=== PATIENT | female | born 1970 | race Caucasian/White ===

== ENCOUNTER 2017-07-16 13:20 | Inpatient (IN) | payer MEDICARE ==
--- NOTE | 2017-07-16 13:58 | RAD ---
RADIOGRAPH CHEST 2 VIEWS: Date: 07/16/17 Time: 1343 HOURS HISTORY: 47-year-old female with cough, chest congestion, weakness, nausea, and emesis. COMPARISON: 08/03/13. FINDINGS: The cardiac size has increased since the previous study. There is no krista pulmonary edema. No pleura l effusion or pneumothorax. There is an irregularly shaped, approximately 2 x 3 cm opacity overlying the right lower lung zone on the frontal view, new since the prior study. IMPRESSION: 1. Focal opacity at right lower lung zone, which could either be an early pneumonia or pulmonary sanam plasm. 2. Interval development of cardiomegaly (without congestive heart failure). 3. Recommend serial follow-up chest radiographs, beginning in 1 week. If the right-sided pulmonary o pacity does not resolve, then further evaluation with chest CT would be recommended. Code T JN [] POS: OFF
[2017-07-16 14:12] LABS: #Basophils 0.1 thou/uL (0.0-0.2); #Eosinphils 0.2 thou/uL (0.0-0.7); #Monocytes 0.5 thou/uL (0.11-0.59); #Neutrophils 6.6 thou/uL (1.40-6.50); %Basophils 0.7 % (0.0-1.0); %Eosinophils 1.9 % (0.0-10.0); %Monocytes 5.4 % (0.0-10.0); %Neutrophils 71.1 % (42.0-75.0); Hemoglobin 7.2 g/dL (12.0-16.0); Mean Corpuscular HGB CONC 33.5 g/dL (32.0-36.0); Mean Corpuscular Volume 86.7 fl (81.0-99.0); Mean Platelet Volume 7.2 fL (7.4-10.4); Platelet Count 256 thou/uL (130-400); RBC Distribution Width 12.1 % (11.5-14.5); Red Blood Cell (RBC) Count 2.49 mill/uL (4.20-5.40); White Blood Cell (WBC) Count 9.3 thou/uL (4.8-10.8)
[2017-07-16 14:36] LABS: ALT (SGPT) 12 U/L (8-55); AST (SGOT) 15 U/L (5-34); Albumin 3.5 g/dL (3.5-5.0); Alkaline Phosphatase 96 U/L (40-150); Anion Gap 14 mmol/L (10-20); BUN (Urea Nitrogen) 37 mg/dL (7.0-18.7); Bilirubin, Total 0.3 mg/dL (0.2-1.2); Calc. Creatinine Clearance 0 mL/min (70-130); Calcium 8.8 mg/dL (7.8-10.44); Carbon Dioxide 18 mmol/L (22-29); Chloride 109 mmol/L (98-107); Estimated GFR-MDRD 16; Globulin 3.1 g/dL (2.4-3.5); Glucose 95 mg/dL (70-105); Potassium 4.7 mmol/L (3.5-5.1); Protein, Total 6.6 g/dL (6.0-8.3); Sodium 136 mmol/L (136-145)
[2017-07-16 16:35] LABS: Troponin I 0.317 ng/mL (< 0.028)
[2017-07-16 16:40] LABS: BHCG - Serum Negative (NEGATIVE); Pregs Control Background? CLEAR/WHITE (CLR/WHITE); Pregs Control Bar Appear? YES (CONTROL BAR)
[2017-07-16] MEDS ORDERED: cloNIDine 0.1 MG TAB ONE (17:34)
[2017-07-16] MEDS ORDERED: Aspirin 325 MG TAB ONE (17:34)
[2017-07-16 18:17] LABS: Bilirubin Negative (Negative); Blood, Urine Trace (Negative); Clarity CLEAR (Clear); Glucose, Urine (Dipstick) 100 mg/dL (Negative); Leukocyte Negative (Negative); Nitrite Negative (Negative); Protein, Urine (Dipstick) 300 mg/dL (Neg-Trace); Specific Gravity, Urine 1.014 (1.002-1.036); Urobilinogen 0.2 mg/dL (0.2-1.0); pH, Urine 5.5 (5.0-9.0)
[2017-07-16 18:20] LABS: Bacteria/HPF None Seen HPF (None Seen); Hyaline Casts/LPF 0-3 HYALINE CAST LPF (0-3 Hyaline); Pathc Cast-AUWi Flag 0.13 (0-2.49); Squamous Epithelial None Seen HPF (0-3); WBC/HPF 0-3 HPF (0-3)
[2017-07-16 19:22] LABS: INR-International Normal Ratio 1.1; PTT 29.4 SEC (22.9-36.1); Prothrombin Time 14.6 SEC (12.0-14.7)
[2017-07-16] MEDS ORDERED: Enoxaparin Sodium 100 MG/ML SYRINGE ONE (19:33)
[2017-07-16] MEDS ORDERED: Guaifenesin DM 100-10/5 ML UDCUP PO PRN (20:14)
[2017-07-16] MEDS ORDERED: Dextrose 5% in Water 1,000 ML IV PRN (20:14)
[2017-07-16] MEDS ORDERED: Dextrose 50% Abboject 50 ML SYRINGE SLOW IVP PRN (20:14)
[2017-07-16] MEDS ORDERED: HumaLOG 300 UNITS/3 ML VIAL SC PRN (20:14)
--- NOTE | 2017-07-16 20:22 | CT ---
CT OF THE CHEST WITHOUT CONTRAST: 07/16/17 COMPARISON: Chest x-ray 07/16/17. HISTORY: Right sided pulmonary infiltrate seen on chest x-ray. TECHNIQUE: Multiple contiguous axial images were obtained in a CT of the chest without contrast. Coronal reforma ts were performed. FINDINGS: There are small bilateral pleural effusions. There is a ground glass infiltrate in the right middle l obe. No suspicious pulmonary mass is seen. The heart is slightly enlarged. No obvious hilar or mediastinal lymphadenopathy are seen, but evaluat ion is limited without IV contrast. The patient is status post cholecystectomy. The visualized subdiaphragmatic structures are unremarkab le. The osseous structures are unremarkable. There is a 1.6 cm round mass in the midline of the chest jus t above the sternum. IMPRESSION: 1. Small bilateral pleural effusions. 2. Right middle lobe infiltrate without suspicious pulmonary mass. 3. Mass seen in front of the sternum. This is associated with the skin and may represent a sebac eous cyst. Correlate with physical examination. POS: TIN
[2017-07-16] MEDS ORDERED: Azithromycin 500 MG in Sodium Chloride 0.9% 250 ML 250 ML IVPB SCH (20:45)
[2017-07-16 20:53] LABS: Iron 21 ug/dL (50-170); Iron Binding Capacity, Total 326 mcg/dL (265-497)
[2017-07-16 20:58] LABS: Critical Call Chem Troponin I RESULT DECREASING; Troponin I 0.315 ng/mL (< 0.028)
[2017-07-16 21:26] LABS: Folate (Folic Acid) 9.1 ng/mL (7.0-31.4)
[2017-07-16 22:52] VITALS: BMI 34.8
--- NOTE | 2017-07-16 23:06 | HP ---
REASON FOR ADMISSION: Volume overload, acute kidney injury. HISTORY OF PRESENT ILLNESS: The patient gives history of having exertional chest tightness and short ness of breath off and on from last 3 days. She was getting relief on sitting. No fever or cough. This has been gradually worsening and finally patient made it to the emergency room. Currently, has no chest pain or tightness. No complaints of urinary symptoms or abdominal pain at present. No prio r cardiac workup per patient. PAST MEDICAL AND SURGICAL HISTORY: History of chronic kidney disease stage 2 to 3, diabetes mellitus type 2 from last 25 years, hypertension, dyslipidemia, history of prior CVA with right-sided paraest hesias with complete resolution, x1, and cholecystectomy. Diabetic retinopathy with near c omplete blindness in both eyes. CURRENT MEDICATIONS: Glimepiride 1 mg p.o. daily, fluoxetine 20 mg daily, metformin 1000 mg twice da mariel, levothyroxine 175 mcg p.o. daily, lisinopril 40 mg daily, Plavix 75 mg p.o. daily, Coreg 25 mg p .o. twice daily, Lasix 20 mg daily, atorvastatin 40 mg p.o. daily. ALLERGIES: No known drug allergies, but is allergic to PEANUTS. PERSONAL HISTORY: Does not abuse alcohol or drugs. No history of smoking. FAMILY HISTORY: Mother in her 70s and has had history of stroke, coronary artery disease, CHF, and diabetes. Biological dad in 70s and has had history of coronary artery disease. REVIEW OF SYSTEMS: The following complete review of systems was negative, unless otherwise mentioned in the HPI or below: Constitutional: Weight loss or gain, ability to conduct usual activities. Skin: Rash, itching. Eyes: Double vision, pain. ENT/Mouth: Nose bleeding, neck stiffness, pain, tenderness. Cardiovascular: Palpitations, dyspnea on exertion, orthopnea. Respiratory: Shortness of breath, wheezing, cough, hemoptysis, fever or night sweats. Gastrointestinal: Poor appetite, abdominal pain, heartburn, nausea, vomiting, constipation, or diarr hea. Genitourinary: Urgency, frequency, dysuria, nocturia. Musculoskeletal: Pain, swelling. Neurologic/Psychiatric: Anxiety, depression. Allergy/Immunologic: Skin rash, bleeding tendency. PHYSICAL EXAMINATION: GENERAL: The patient is a 47-year-old female who is currently not in any acute distress. VITAL SIGNS: Blood pressure 146/84, pulse 68 per minute, respiratory rate 18 per minute, temperature 97.7 degrees Fahrenheit, saturating 98% on room air. NECK: Supple, no elevated JVD. HEENT: Eyes: Extraocular muscles intact. Pupils reacting to light. Oral cavity mucous membranes a re moist. No exudates or congestion. CARDIOVASCULAR: S1, S2 heard. Regular rhythm. RESPIRATORY: Air entry 1+ bilateral. There are rales in the infrascapular area. ABDOMEN: Soft, bowel sounds heard. No tenderness, rigidity or guarding. EXTREMITIES: Mild peripheral edema, no calf tenderness. VASCULAR SYSTEM: Peripheral pulses 1+ bilateral. No ischemic ulcerations or gangrene. CENTRAL NERVOUS SYSTEM: No gross focal deficits seen. The patient is alert, awake, oriented well. PSYCHIATRIC: The patient's mood is euthymic. No hallucinations or delusions. LABORATORY DATA AND X-RAY FINDINGS: EKG done shows normal sinus rhythm at 72 beats per minute. Ches t x-ray done shows cardiomegaly with mild pulmonary vascular congestion. CT chest has been done, the official results are pending at present. White count of 9.3, H and H 7 and 21, MCV is 86 with plate let count of 256 and 71% neutrophils. PT, INR, PTT within normal limits. BUN 37, creatinine 3.0. S ana bicarbonate 18, glucose 95. Liver enzymes within normal limits. Albumin is 3.5, troponin I is 0.31. CK-MB 4.0, BNP is 1173. Serum test is negative. CLINICAL IMPRESSION AND PLAN: The patient will be admitted to telemetry for volume overload with acu te kidney injury. Her baseline creatinine appears to be around 1.4. We will place her on Lasix 40 m g IV q.12 hourly and hold her metformin and glimepiride for now and replace that with Levemir 20 unit s subcu twice daily. The patient was on aspirin prior to her having right-sided paraesthesias and st roke in the past and was placed on Plavix. No prior cardiac workup. We will obtain an echo with 2D Doppler for LV function. We will also continue her Coreg, Lipitor, fluoxetine, and levothyroxine as before. We will also check ferritin, iron studies and stool occult testing as well. I have consulte d Dr. Bocanegra for Nephrology in view of her renal function likely getting worse with diuresis and cardiology consultation with Dr. Tan as well. We will continue to closely monitor her for any hemodynamic compromise.
[2017-07-16] MEDS: Atorvastatin Calcium 40 MG TAB PO SCH (23:07)
[2017-07-16] MEDS: Carvedilol 25 MG TAB PO SCH (23:07)
[2017-07-16] MEDS: INSULIN DETEMIR SC SCH (23:25)
[2017-07-16] MEDS: ADMIXTURE FEE SC SCH (23:25)
[2017-07-16 23:49] LABS: Troponin I 0.287 ng/mL (< 0.028)
[2017-07-17] MEDS: Levothyroxine 150 MCG TAB PO SCH (04:54)
[2017-07-17 05:57] LABS: #Eosinphils 0.2 thou/uL (0.0-0.7); #Lymphocytes 1.7 thou/uL (1.20-3.40); #Monocytes 0.5 thou/uL (0.11-0.59); #Neutrophils 4.1 thou/uL (1.40-6.50); %Basophils 0.6 % (0.0-1.0); %Eosinophils 2.7 % (0.0-10.0); %Lymphocytes 26.8 % (21.0-51.0); %Monocytes 7.7 % (0.0-10.0); %Neutrophils 62.2 % (42.0-75.0); Mean Corpuscular HGB CONC 33.9 g/dL (32.0-36.0); Mean Corpuscular Hemoglobin 29.4 pg (27.0-31.0); Mean Corpuscular Volume 86.7 fl (81.0-99.0); Mean Platelet Volume 7.2 fL (7.4-10.4); Platelet Count 178 thou/uL (130-400); RBC Distribution Width 12.7 % (11.5-14.5); Red Blood Cell (RBC) Count 2.37 mill/uL (4.20-5.40); White Blood Cell (WBC) Count 6.5 thou/uL (4.8-10.8)
[2017-07-17 06:06] LABS: Hemoglobin A1c 4.9 % (4.0-6.0)
[2017-07-17] MEDS: Furosemide 40 MG/4 ML VIAL SLOW IVP SCH ×2 (06:08→14:29)
[2017-07-17 06:18] LABS: Anion Gap 10 mmol/L (10-20); BUN (Urea Nitrogen) 36 mg/dL (7.0-18.7); Calc. Creatinine Clearance 38 mL/min (70-130); Calcium 8.6 mg/dL (7.8-10.44); Carbon Dioxide 21 mmol/L (22-29); Cardiac Risk 4.2 (Less than 4.5); Chloride 110 mmol/L (98-107); Cholesterol 104 mg/dl (< 200 Desired); Estimated GFR-MDRD 17; Glucose 93 mg/dL (70-105); HDL Cholesterol 25 mg/dL (>60 Neg Risk); LDL Cholesterol, Calculated 35 mg/dL; Potassium 4.4 mmol/L (3.5-5.1); Sodium 137 mmol/L (136-145); Triglycerides 220 mg/dL (Less than 150); Uric Acid 5.8 mg/dL (2.6-6.0)
--- NOTE | 2017-07-17 08:15 | CON ---
DATE OF CONSULTATION: 07/16/2017 REQUESTING PHYSICIAN: Dr. Phillips. REASON FOR CONSULTATION: Chronic kidney disease. IMPRESSION: 1. Advanced chronic kidney disease. This is likely in the context of problem #2. 2. Diabetic nephropathy. 3. Mild metabolic acidosis related to problems above. 4. Anemia, possibly anemia of chronic kidney disease, but cannot completely rule out iron deficiency component. 5. Diabetes mellitus for many years, on oral hypoglycemic agents unfortunately, in this case metform in. 6. Chest pain, query cause, somewhat concerning for acute coronary syndrome in this patient with cor onary artery disease. PLAN: 1. Iron studies to rule out iron deficiency component. 2. Renally dose all medications per low GFR. 3. Permanently discontinue metformin. 4. Iron studies given the symptomatic nature of this patient's anemia in the way of chest pain, we w ill recommend transfusing this patient with at least 1 unit of blood. 5. Cardiology consultation/evaluation strongly recommended. 6. Further management to be dependent on the clinical course. 7. No indication for dialytic intervention. HISTORY OF PRESENT ILLNESS: This is a 47-year-old female patient with type 2 diabetes who has been o n oral hypoglycemic agent, metformin for several years, presented here with what she described as miri st tightness that waxes and wanes with some radiation to the arm and occasional nausea. Patient note d to be severely anemic, hemoglobin of 7.2 and elevated renal electrolytes, BUN of 37 and creatinine of 3.07, bicarbonate of 18. PHYSICAL EXAMINATION: GENERAL: The patient was found not to be in any obvious distress, sleeping, but arousable. VITAL SIG NS: Noted with the following blood pressure 148/85, pulse 68, respiratory rate of 18, O2 sat of 98%. HEENT: Unremarkable. HEENT: Unremarkable. Moist oral mucosa. No conjunctival injection or icterus. NECK: Supple. CARDIOVASCULAR: First and second heart sounds were heard. RESPIRATORY: Clear to auscultation. DIGESTIVE: Revealed a benign abdomen with positive bowel sounds. EXTREMITIES: No peripheral edema. SKIN: No new gross rash. LYMPHATICS: No peripheral lymphadenopathy. SUMMARY: A 47-year-old female patient who presented here with chest tightness and noted to be severe ly anemic and .
[2017-07-17] MEDS: Carvedilol 25 MG TAB PO SCH ×2 (08:17→22:14)
[2017-07-17] MEDS: FLUoxetine HCl 20 MG CAP PO SCH (08:17)
[2017-07-17] MEDS: Clopidogrel Bisulfate 75 MG TAB PO SCH (08:17)
[2017-07-17] MEDS: Enoxaparin Sodium 30 MG/0.3 ML SYRINGE SC SCH (08:18)
[2017-07-17] MEDS ORDERED: Ferrous Sulfate 325 MG TAB PO SCH (09:00)
[2017-07-17] MEDS: ADMIXTURE FEE SC SCH ×2 (09:01→22:15)
[2017-07-17] MEDS: INSULIN DETEMIR SC SCH ×2 (09:01→22:15)
--- NOTE | 2017-07-17 12:44 | PDOC.PN ---
- Subjective Encounter Start Date: 07/17/17 Encounter Start Time: 10:15 Subjective: still has exertional sob, no chest pain -: says she is perimenopausal and has had menorrhagia for the last few cycles - Objective Resuscitation Status: Resuscitation Status FULL:Full Resuscitation MAR Reviewed: Yes Vital Signs & Weight: Vital Signs (12 hours) Temp Pulse Pulse Resp BP BP BP 07/17/17 11:58 98.3 F 68 17 155/71 H 07/17/17 10:52 99.3 F 70 18 07/17/17 08:05 99.3 F 70 18 161/69 H 07/17/17 06:12 98.4 F 69 16 166/71 H 07/17/17 04:55 98.4 F 69 16 166/71 H Pulse Ox 07/17/17 11:58 97 07/17/17 10:52 96 07/17/17 08:05 96 07/17/17 06:12 97 07/17/17 04:55 97 Weight Weight 230 lb I&O: 07/16/17 07/17/17 07/18/17 06:59 06:59 06:59 Intake Total 1180 Output Total 650 Balance 530 Result Diagrams: 07/17/17 05:42 07/17/17 05:42 Additional Labs: Accuchecks 07/16/17 23:03 POC Glucose 168 H Phys Exam - Physical Examination HEENT: moist MMs, sclera anicteric Neck: no JVD, supple Respiratory: no wheezing, no rales Cardiovascular: RRR, no significant murmur Gastrointestinal: soft, non-tender, positive bowel sounds Musculoskeletal: pulses present, edema present Neurological: non-focal, moves all 4 limbs Psychiatric: A&O x 3 Dx/Plan (1) Acute exacerbation of CHF (congestive heart failure) Code(s): I50.9 - HEART FAILURE, UNSPECIFIED Status: Acute Qualifiers: Congestive heart failure type: unspecified congestive heart failure type Qualified Code(s): I50.9 - Heart failure, unspecified (2) ILDEFONSO (acute kidney injury) Code(s): N17.9 - ACUTE KIDNEY FAILURE, UNSPECIFIED Status: Acute (3) Demand ischemia of myocardium Code(s): I24.8 - OTHER FORMS OF ACUTE ISCHEMIC HEART DISEASE Status: Acute (4) DM type 2 (diabetes mellitus, type 2) Status: Chronic Qualifiers: Diabetes mellitus complication status: with ophthalmic complications Diabetes mellitus complication detail: with other ophthalmic complication Diabetes mellitus usp insulin use: without usp use Qualified Code( s): E11.39 - Type 2 diabetes mellitus with other diabetic ophthalmic complication (5) Iron deficiency anemia Code(s): D50.9 - IRON DEFICIENCY ANEMIA, UNSPECIFIED Status: Acute Qualifiers: Iron deficiency anemia type: chronic blood loss Qualified Code(s): D50.0 - Iron deficiency anemia secondary to blood loss (chronic) (6) CVA (cerebral vascular accident) Code(s): I63.9 - CEREBRAL INFARCTION, UNSPECIFIED Status: Chronic Qualifiers: CVA mechanism: unspecified Qualified Code(s): I63.9 - Cerebral infarction, unspecified Comment: no residual paralysis (7) Chronic kidney disease (CKD) Code(s): N18.9 - CHRONIC KIDNEY DISEASE, UNSPECIFIED Status: Chronic Qualifiers: Chronic kidney disease stage: stage 2 (mild) Qualified Code(s): N18.2 - Chronic kidney disease, stage 2 (mild) (8) Hyperlipidemia Code(s): E78.5 - HYPERLIPIDEMIA, UNSPECIFIED Status: Chronic Qualifiers: Hyperlipidemia type: unspecified Qualified Code(s): E78.5 - Hyperlipidemia , unspecified (9) Hypertension Code(s): I10 - ESSENTIAL (PRIMARY) HYPERTENSION Status: Chronic Qualifiers: Hypertension type: essential hypertension Qualified Code(s): I10 - Essential (primary) hypertension (10) Obesity Code(s): E66.9 - OBESITY, UNSPECIFIED Status: Chronic Qualifiers: Obesity classification: adult class 2 (BMI 35 - 39.9) (11) PNA (pneumonia) Code(s): J18.9 - PNEUMONIA, UNSPECIFIED ORGANISM Status: Acute Qualifiers: Pneumonia type: due to unspecified organism Laterality: right Lung location: middle lobe of lung Qualified Code(s): J18.1 - Lobar pneumonia, unspecified organism - Plan gentle diuresis, watch for renal function -: ferritin is very low at 8 -: echo, stool occult pending -: levaquin for pna -: Hb around 7g, on plavix * . Review of Systems - Medications/Allergies Allergies/Adverse Reactions: Allergies Allergy/AdvReac Type Severity Reaction Status Date / Time peanut Allergy Intermediate Emesis Verified 07/16/17 22:46 Medications: Current Medications Acetaminophen (Tylenol) 650 mg PO Q4H PRN PRN Reason: Headache/Fever or Pain Atorvastatin Calcium (Lipitor) 40 mg PO HS PENDING SALE TO [facility] Last Admin: 07/16/17 23:07 Dose: 40 mg Carvedilol (Coreg) 25 mg PO BID PENDING SALE TO [facility] Last Admin: 07/17/17 08:17 Dose: 25 mg Clopidogrel Bisulfate (Plavix) 75 mg PO DAILY PENDING SALE TO [facility] Last Admin: 07/17/17 08:17 Dose: 75 mg Dextrose/Water (Dextrose 50%) 25 gm SLOW IVP PRN PRN PRN Reason: Hypoglycemia Enoxaparin Sodium (Lovenox) 30 mg SC 0900 PENDING SALE TO [facility] Last Admin: 07/17/17 08:18 Dose: 30 mg Ferrous Sulfate (Feosol) 325 mg PO DAILY PENDING SALE TO [facility] Last Admin: 07/17/17 08:17 Dose: 325 mg Fluoxetine HCl (Prozac) 20 mg PO DAILY PENDING SALE TO [facility] Last Admin: 07/17/17 08:17 Dose: 20 mg Furosemide (Lasix) 40 mg SLOW IVP 0600,1400 PENDING SALE TO [facility] Last Admin: 07/17/17 06:08 Dose: 40 mg Glucagon (Glucagon) 1 mg IM PRN PRN PRN Reason: Hypoglycemia Guaifenesin/Dextromethorphan (Robitussin Dm) 15 ml PO Q4H PRN PRN Reason: Cough Dextrose/Water (D5w) 1,000 mls @ 0 mls/hr IV .Q0M PRN; As Directed PRN Reason: Hypoglycemia Insulin Detemir 20 units/ (Miscellaneous Medication) 0.2 mls @ 0 mls/hr SC BID PENDING SALE TO [facility] Last Admin: 07/17/17 09:01 Dose: 0.2 mls Levofloxacin 500 mg/ Device 100 mls @ 100 mls/hr IVPB Q24HR@0900 PENDING SALE TO [facility] Last Admin: 07/17/17 09:01 Dose: 100 mls Insulin Human Lispro (Humalog) 0 units SC .MODERATE SLIDING SC PRN PRN Reason: Moderate Correctional Scale Insulin Human Lispro (Humalog) 0 units SC .BEDTIME SLIDING SC PRN PRN Reason: Bedtime Correctional Scale Levothyroxine Sodium (Synthroid) 150 mcg PO 0600 PENDING SALE TO [facility] Last Admin: 07/17/17 04:54 Dose: 150 mcg
--- NOTE | 2017-07-17 13:48 | EKG ---
Test Reason : Blood Pressure : / mmHG Vent. Rate : 072 BPM Atrial Rate : 072 BPM P-R Int : 162 ms QRS Dur : 088 ms QT Int : 408 ms P-R-T Axes : 047 -04 044 degrees QTc Int : 446 ms Normal sinus rhythm Possible Left atrial enlargement Confirmed by KELSEY SELBY ([id number]), health editor LEXI KWONG ([id number]) on 07/17/2017 1:48:18 PM Referred By: Confirmed By:KELSEY SELBY
[2017-07-17] MEDS: Acetaminophen 325 MG TAB PO PRN (14:04)
--- NOTE | 2017-07-17 14:50 | CON ---
REASON FOR CONSULTATION: Elevated troponins. PRIMARY SPECIALIZED LANGUAGE INSTRUCTOR: None. REFERRING PROVIDER: Kati Phillips M.D. HISTORY OF PRESENT ILLNESS: Ms. Munoz is a pleasant 47-year-old woman with a previous history of diab etes mellitus in last 25 years with history of chronic renal insufficiency who recently presented wit h chest tightness and shortness of breath. This is felt to be a new finding without new symptoms. S he presented to the emergency room, was markedly anemic. Her creatinine was also 3. She states she has had chronic renal insufficiency in the past, but has not seen a investment banking analyst. No previous histor y of underlying coronary disease. PAST MEDICAL HISTORY: Diabetes mellitus, hyperlipidemia, hypertension, CVA, . PAST SURGICAL HISTORY: Cholecystectomy, diabetic retinopathy with blindness in her right eye and dec reased vision in her left. CURRENT MEDICATIONS: Include glipizide, lisinopril, fluoxetine, metformin, Plavix, atorvastatin, Las ix, levothyroxine, and Coreg. ALLERGIES: None. SOCIAL HISTORY: No current tobacco or alcohol use. She is currently , has 1 child. She dev eloped gestational diabetes as the etiology of her current condition. REVIEW OF SYSTEMS: Ten-point review of systems is reviewed and is as above negative. PHYSICAL EXAMINATION: GENERAL: She does appear older than the stated age with missing teeth. VITAL SIGNS: Blood pressure 155/71, pulse 68, temperature 98.3. NEUROLOGIC: The patient is alert and oriented times 3 with no focal neurologic deficits. HEENT: With patch noted on her right eye. NECK: No JVD. Carotid upstroke brisk. No bruits bilaterally. LUNGS: Clear to auscultation with unlabored respirations. BACK: No scoliosis or kyphosis. CARDIAC: Regular rate and rhythm with normal S1 and S2. No S3 or S4 noted. No significant rubs, mu rmurs, thrills, or gallops noted throughout the precordium. PMI is not displaced. There is no madelyn ternal heave. ABDOMEN: Obese. EXTREMITIES: 2+ femoral and 2+ dorsalis pedis pulses. No cyanosis, clubbing, or edema. SKIN: No gross abnormalities. PERTINENT LABORATORY DATA: Hemoglobin 7, which is unchanged after receiving 1 unit of packed red blo od cells. Echo with Doppler shows normal LVEF with mild to moderate concentric LVH, mild MR, TR, and likely grade II diastolic dysfunction. Troponin 0.2. IMPRESSION: 1. Chest pain. 2. Elevated troponin. 3. Chronic kidney disease. 4. Anemia. 5. Diabetes mellitus. RECOMMENDATIONS: Certainly a difficult case. Fortunately, her LVEF is normal. Her increased tropon in may be related to anemia. I do not feel it is related to unstable angina. At this point, would t ransfuse to keep her hemoglobin above 8. Given that her EF is normal with no wall motion abnormaliti es and LVH present, she may likely benefit from a noninvasive study on Wednesday. I did discuss angiogr aphy with Ms. Munoz but concerns about worsening renal function and potential dialysis as a risk was judit antonio concerning to patient. At this point, I have no further recommendations to Benji Munoz.
[2017-07-17] MEDS ORDERED: ALPRAZolam 1 MG TAB PO PRN (16:23)
[2017-07-17] MEDS ORDERED: Clopidogrel Bisulfate 75 MG TAB ONE (17:58)
[2017-07-17] MEDS: Atorvastatin Calcium 40 MG TAB PO SCH (22:14)
--- NOTE | 2017-07-18 01:58 | CON ---
GASTROENTEROLOGY CONSULTATION DATE OF CONSULTATION: 07/17/2017 CHIEF COMPLAINT: Chest pain. HISTORY OF PRESENT ILLNESS: Ms. Munoz is a 47-year-old woman who presented to the emergency room with chest pain and shortness of breath. Around 3 nights ago, she had onset of chest tightness and troub le breathing. This went on for a few minutes and then went away. The next day, she had recurrent ep isode and then next night, she had a longer episode of shortness of breath. She had more trouble wit h shortness of breath, then just with minimal exertion. She came into the emergency room for further care and was found to have severe anemia. Her cardiac enzymes are mildly elevated and Cardiology wa s asked to evaluate her. She had an echocardiogram that looked okay. She has been on aspirin and Pl avix for the last couple of years since she had an ischemic stroke. She reports heavy uterine bleedi ng over the last 2 months. She had continuous menstrual period over that time period, which has stop ped a few days ago. She thought this was just a perimenopausal bleeding, but this is a new onset sym ptom for her. She has had for the last 2 weeks new onset vomiting. She would wake up in the morning , get nauseated and vomits, sometimes just dry heaves and then later in the morning, she drinks a cof fee and then eat regularly throughout the rest of the day. She has had this vomiting each morning fo r the last couple of weeks. For the last couple of months or so, she has had watery diarrhea once pe r day. She has had no blood in the stool, no black stools. Weight has been stable. PAST MEDICAL HISTORY: Diabetes mellitus, stroke, hypertension, hypothyroidism, hyperlipidemia, chron ic kidney disease, diabetic retinopathy. PAST SURGICAL HISTORY: Cholecystectomy and . FAMILY HISTORY: Negative for GI malignancy. Her mother had cardiac disease. SOCIAL HISTORY: No alcohol, tobacco, or drugs. ALLERGIES: No known drug allergies. MEDICATIONS PRIOR TO ADMISSION: Aspirin, Plavix, metformin, glimepiride, fluoxetine, levothyroxine, lisinopril, Coreg, Lasix, atorvastatin. REVIEW OF SYSTEMS: Negative x10 systems reviewed except as stated in the history of present illness. PHYSICAL EXAMINATION: VITAL SIGNS: Temperature 97.9, pulse 71, blood pressure 155/67. However, it has been fluctuating 19 . GENERAL: She is in no acute distress. She is alert and oriented x3. HEENT: He eyes have no scleral icterus. Oropharynx is clear without lesions. NECK: No cervical or supraclavicular lymphadenopathy. LUNGS: Clear to auscultation bilaterally. HEART: Regular rate and rhythm without murmur. ABDOMEN: Soft, nontender, nondistended. Bowel sounds are present. EXTREMITIES: No lower extremity edema. LABORATORY: Creatinine 3.07, iron 21, TIBC 326, ferritin 8, bilirubin 0.3, AST 15, ALT 12, alkaline phosphatase 96, troponin 0.317. BNP 1173, albumin 3.5. Serum test was negative. INR 1.1. White blood cell count 6.5, hemoglobin 7.0, MCV 86, platelets 178. IMPRESSION: 1. Iron deficiency anemia. By history, this is most likely secondary to heavy uterine bleeding over the last 2 months. Still an additional GI source should be considered. 2. Nausea and vomiting each morning over the last couple of weeks. She tolerates her diet pretty we ll through the rest of the day. The cause of this is not clear at this point. 3. Chronic diarrhea with 1 watery stool per day over the last couple of months. She is on metformin . We will rule out an infectious source with stool studies. 4. Stroke a couple of years ago, on aspirin and Plavix. 5. Chest pain or shortness of breath which are currently improved. PLAN: Cardiology has evaluated her and the plan is for a stress test to be done on Wednesday. RECOMMENDATIONS: 1. Check stool studies. 2. Proton pump inhibitor. 3. Check H. pylori antibody. 4. Transfuse a unit of blood today and check repeat hemoglobin tomorrow. She failed to improve her hemoglobin from 7 after 1 unit transfusion last night. 5. Hold oral iron in case we needing to do a colonoscopy later in the hospital stay. 6. We will plan for EGD and colonoscopy after cardiac evaluation is complete. 7. Consider IV iron infusion. 8. We will check a tissue transglutaminase antibody for celiac screen.
[2017-07-18] MEDS: Acetaminophen 325 MG TAB PO PRN ×2 (02:53→18:48)
[2017-07-18] MEDS: cloNIDine 0.1 MG TAB PO PRN (04:19)
[2017-07-18] MEDS: Furosemide 40 MG/4 ML VIAL SLOW IVP SCH (05:44)
[2017-07-18] MEDS: Levothyroxine 150 MCG TAB PO SCH (05:44)
[2017-07-18 06:34] LABS: #Basophils 0.1 thou/uL (0.0-0.2); #Eosinphils 0.2 thou/uL (0.0-0.7); #Lymphocytes 1.5 thou/uL (1.20-3.40); #Monocytes 0.5 thou/uL (0.11-0.59); #Neutrophils 4.4 thou/uL (1.40-6.50); %Basophils 0.8 % (0.0-1.0); %Eosinophils 3.1 % (0.0-10.0); %Lymphocytes 22.5 % (21.0-51.0); %Neutrophils 66.6 % (42.0-75.0); Hemoglobin 8.1 g/dL (12.0-16.0); Mean Corpuscular Volume 87.7 fl (81.0-99.0); Mean Platelet Volume 7.5 fL (7.4-10.4); Platelet Count 193 thou/uL (130-400); RBC Distribution Width 12.6 % (11.5-14.5); Red Blood Cell (RBC) Count 2.79 mill/uL (4.20-5.40); White Blood Cell (WBC) Count 6.6 thou/uL (4.8-10.8)
[2017-07-18 06:52] LABS: Anion Gap 13 mmol/L (10-20); BUN (Urea Nitrogen) 34 mg/dL (7.0-18.7); Calc. Creatinine Clearance 37 mL/min (70-130); Calcium 8.9 mg/dL (7.8-10.44); Carbon Dioxide 19 mmol/L (22-29); Chloride 110 mmol/L (98-107); Estimated GFR-MDRD 16; Glucose 93 mg/dL (70-105); Potassium 3.8 mmol/L (3.5-5.1); Sodium 138 mmol/L (136-145)
[2017-07-18] MEDS: Carvedilol 25 MG TAB PO SCH ×2 (08:31→20:24)
[2017-07-18] MEDS: Clopidogrel Bisulfate 75 MG TAB PO SCH (08:32)
[2017-07-18] MEDS: Enoxaparin Sodium 30 MG/0.3 ML SYRINGE SC SCH (08:32)
[2017-07-18] MEDS: FLUoxetine HCl 20 MG CAP PO SCH (08:32)
[2017-07-18] MEDS: INSULIN DETEMIR SC SCH ×2 (08:35→20:25)
[2017-07-18] MEDS: ADMIXTURE FEE SC SCH ×2 (08:35→20:25)
[2017-07-18] MEDS ORDERED: Amlodipine 5 MG TAB PO SCH (10:15)
--- NOTE | 2017-07-18 13:53 | PRG ---
DATE OF SERVICE: 07/18/2017 SUBJECTIVE: Ms. Munoz is improving. Her blood pressure has been improved. I have added Norvasc to h er current regime. She does admit to having poorly controlled hypertension in the past. Her blood p ressure has been in the 170s to 200s. OBJECTIVE: VITAL SIGNS: Blood pressure 142/66, it was 172/61, pulse 69, respirations 20. LUNGS: Clear to auscultation. CARDIAC: Regular rate and rhythm. ABDOMEN: Soft, nontender, nondistended. EXTREMITIES: No edema. Echo Doppler showed normal LVEF with moderate LVH present. IMPRESSION: 1. Elevated troponin. 2. Renal insufficiency. 3. Anemia. RECOMMENDATIONS: Elevated troponin likely multifactorial with elevated creatinine, decreased hemoglo bin and hypertension. She also has LVH. It does not seem to be consistent with unstable angina. Sh kj may have had an event from a hypertensive urgency. At this point, I recommend conservative approac h given a creatinine of 3.0. If her stress study appears normal or low risk, we would recommend cons ervative approach with aggressive blood pressure management.
--- NOTE | 2017-07-18 14:11 | PDOC.PN ---
- Subjective Encounter Start Date: 07/18/17 Encounter Start Time: 14:09 Subjective: feels much better .no active bleeding. -: breathing back to baseline.No chest pain - Objective Resuscitation Status: Resuscitation Status FULL:Full Resuscitation MAR Reviewed: Yes Vital Signs & Weight: Vital Signs (12 hours) Temp Pulse Pulse Resp BP BP BP 07/18/17 11:13 98.0 F 69 16 07/18/17 10:23 68 173/71 H 07/18/17 09:59 173/61 H 07/18/17 08:29 99.0 F 68 18 07/18/17 08:10 99.0 F 68 16 07/18/17 06:24 163/69 H 07/18/17 04:19 191/78 H 07/18/17 04:00 97.5 F L 80 15 122/68 07/18/17 02:22 98.2 F 70 16 171/70 H BP Pulse Ox 07/18/17 11:13 142/66 H 95 07/18/17 10:23 07/18/17 09:59 07/18/17 08:29 200/86 H 95 07/18/17 08:10 95 07/18/17 06:24 07/18/17 04:19 07/18/17 04:00 95 07/18/17 02:22 93 L Weight Weight 227 lb 12.8 oz I&O: 07/17/17 07/18/17 07/19/17 06:59 06:59 06:59 Intake Total 1180 1970 Output Total 650 4175 Balance 530 -2205 Result Diagrams: 07/18/17 05:22 07/18/17 05:22 Additional Labs: Accuchecks 07/18/17 07/18/17 07/17/17 11:16 05:54 19:51 POC Glucose 122 H 92 147 H 07/17/17 07/17/17 16:27 11:26 POC Glucose 96 110 Microbiology 07/16/17 19:49 Venous blood - Right Arm Blood Culture - Preliminary Specimen has been received and culture in progress. No Growth to date. 07/16/17 19:49 Venous blood - Right Arm Blood Culture - Preliminary NO GROWTH AT 48 HOURS 07/16/17 19:49 Venous blood - Left Arm Blood Culture - Preliminary Specimen has been received and culture in progress. No Growth to date. 07/16/17 19:49 Venous blood - Left Arm Blood Culture - Preliminary NO GROWTH AT 48 HOURS Laboratory Tests 11/01/15 07/16/17 07/16/17 04:25 14:04 14:04 Hgb 7.2 L Creatinine 1.39 H 3.07 H Iron Troponin I B-Natriuretic Peptide Triglycerides Vitamin B12 Folate 07/16/17 07/16/17 07/16/17 14:04 14:04 20:25 Hgb Creatinine Iron Troponin I 0.317 H* 0.315 H* B-Natriuretic Peptide 1173.4 H Triglycerides Vitamin B12 Folate 07/16/17 07/16/17 07/16/17 20:25 20:25 23:03 Hgb Creatinine Iron 21 L Troponin I 0.287 H B-Natriuretic Peptide Triglycerides Vitamin B12 480 Folate 9.10 07/17/17 07/17/17 07/18/17 05:42 05:42 05:22 Hgb 7.0 L Creatinine 3.01 H 3.04 H Iron Troponin I B-Natriuretic Peptide Triglycerides 220 H Vitamin B12 Folate 07/18/17 05:22 Hgb 8.1 L Creatinine Iron Troponin I B-Natriuretic Peptide Triglycerides Vitamin B12 Folate Phys Exam - Physical Examination Constitutional: NAD HEENT: PERRLA, moist MMs, sclera anicteric, oral pharynx no lesions Neck: no JVD Respiratory: no wheezing, no rales, no rhonchi, clear to auscultation bilateral Cardiovascular: RRR, no significant murmur Gastrointestinal: soft, non-tender, no distention, positive bowel sounds Musculoskeletal: no edema, pulses present Neurological: non-focal, normal sensation, moves all 4 limbs Psychiatric: normal affect, A&O x 3 Skin: no rash Dx/Plan (1) Fluid overload Code(s): E87.70 - FLUID OVERLOAD, UNSPECIFIED Status: Acute (2) ILDEFONSO (acute kidney injury) Code(s): N17.9 - ACUTE KIDNEY FAILURE, UNSPECIFIED Status: Acute Comment: Improving. nephrology following. Keri Diabetic nephropathy (3) Demand ischemia of myocardium Code(s): I24.8 - OTHER FORMS OF ACUTE ISCHEMIC HEART DISEASE Status: Acute Comment: Keri d/t severe anemia w PNA (4) Iron deficiency anemia Code(s): D50.9 - IRON DEFICIENCY ANEMIA, UNSPECIFIED Status: Acute Qualifiers: Iron deficiency anemia type: chronic blood loss Qualified Code(s): D50.0 - Iron deficiency anemia secondary to blood loss (chronic) Comment: GI work up underway. ? due to heavy menstrual Bleeding.S/P 2 unit PRBC (5) PNA (pneumonia) Code(s): J18.9 - PNEUMONIA, UNSPECIFIED ORGANISM Status: Acute Qualifiers: Pneumonia type: due to unspecified organism Laterality: right Lung location: middle lobe of lung Qualified Code(s): J18.1 - Lobar pneumonia, unspecified organism (6) DM type 2 (diabetes mellitus, type 2) Status: Chronic Qualifiers: Diabetes mellitus complication status: with ophthalmic complications Diabetes mellitus complication detail: with other ophthalmic complication Diabetes mellitus roadmaster insulin use: without roadmaster use Qualified Code( s): E11.39 - Type 2 diabetes mellitus with other diabetic ophthalmic complication (7) Diabetic neuropathy Code(s): E11.40 - TYPE 2 DIABETES MELLITUS WITH DIABETIC NEUROPATHY, UNSP Status: Acute (8) CVA (cerebral vascular accident) Code(s): I63.9 - CEREBRAL INFARCTION, UNSPECIFIED Status: Chronic Qualifiers: CVA mechanism: unspecified Qualified Code(s): I63.9 - Cerebral infarction, unspecified Comment: no residual paralysis (9) Chronic kidney disease (CKD) Code(s): N18.9 - CHRONIC KIDNEY DISEASE, UNSPECIFIED Status: Chronic Qualifiers: Chronic kidney disease stage: stage 2 (mild) Qualified Code(s): N18.2 - Chronic kidney disease, stage 2 (mild) (10) Hyperlipidemia Code(s): E78.5 - HYPERLIPIDEMIA, UNSPECIFIED Status: Chronic Qualifiers: Hyperlipidemia type: unspecified Qualified Code(s): E78.5 - Hyperlipidemia , unspecified (11) Hypertension Code(s): I10 - ESSENTIAL (PRIMARY) HYPERTENSION Status: Chronic Qualifiers: Hypertension type: essential hypertension Qualified Code(s): I10 - Essential (primary) hypertension (12) Obesity Code(s): E66.9 - OBESITY, UNSPECIFIED Status: Chronic Qualifiers: Obesity classification: adult class 2 (BMI 35 - 39.9) (13) Acute exacerbation of CHF (congestive heart failure) Code(s): I50.9 - HEART FAILURE, UNSPECIFIED Status: Suspected Qualifiers: Congestive heart failure type: unspecified congestive heart failure type Qualified Code(s): I50.9 - Heart failure, unspecified Comment: Improved - Plan plan discussed w/ family, continue antibiotics, PT/OT, respiratory therapy, incentive spirometry, out of bed/ambulate, DVT proph w/SCDs Cont levaquin.clinically better. -: DC lasix to prevent further Renal injury.ECHo w preserved EF -: H/H stable.will need Endoscopy after cardiac work up -: NM stress test tomorrow. cardiology following.cont meds as below -: Blood sugar still high.cont levemir,ISS.monitor. * . labs in am. strict I/Os. Celaic Disease work up underway..Stool studies pending. Review of Systems - Review of Systems Constitutional: negative: fever, chills, sweats, weakness, malaise, other ENT: negative: Ear Pain, Ear Discharge, Nose Pain, Nose Discharge, Nose Congestion, Mouth Pain, Mouth Swelling, Throat Pain, Throat Swelling, Other Respiratory: negative: Cough, Dry, Shortness of Breath, Hemoptysis, SOB with Excertion, Pleuritic Pain, Sputum, Wheezing Cardiovascular: negative: chest pain, palpitations, orthopnea, paroxysmal nocturnal dyspnea, edema, light headedness, other Gastrointestinal: negative: Nausea, Vomiting, Abdominal Pain, Diarrhea, Constipation, Melena, Hematochezia, Other Genitourinary: negative: Dysuria, Frequency, Incontinence, Hematuria, Retention , Other Musculoskeletal: negative: Neck Pain, Shoulder Pain, Arm Pain, Back Pain, Hand Pain, Leg Pain, Foot Pain, Other Neurological: negative: Weakness, Numbness, Incoordination, Change in Speech, Confusion, Seizures, Other - Medications/Allergies Allergies/Adverse Reactions: Allergies Allergy/AdvReac Type Severity Reaction Status Date / Time peanut Allergy Intermediate Emesis Verified 07/16/17 22:46 Medications: Current Medications Acetaminophen (Tylenol) 650 mg PO Q4H PRN PRN Reason: Headache/Fever or Pain Last Admin: 07/18/17 02:53 Dose: 650 mg Alprazolam (Xanax) 1 mg PO Q6H PRN PRN Reason: Anxiety Last Admin: 07/17/17 16:34 Dose: 1 mg Amlodipine Besylate (Norvasc) 5 mg PO DAILY [facility] Atorvastatin Calcium (Lipitor) 40 mg PO HS [facility] Last Admin: 07/17/17 22:14 Dose: 40 mg Carvedilol (Coreg) 25 mg PO BID [facility] Last Admin: 07/18/17 08:31 Dose: 25 mg Clonidine (Catapres) 0.1 mg PO Q4H PRN PRN Reason: SBP > 180 Last Admin: 07/18/17 04:19 Dose: 0.1 mg Clopidogrel Bisulfate (Plavix) 75 mg PO DAILY [facility] Last Admin: 07/18/17 08:32 Dose: 75 mg Dextrose/Water (Dextrose 50%) 25 gm SLOW IVP PRN PRN PRN Reason: Hypoglycemia Enoxaparin Sodium (Lovenox) 30 mg SC 0900 [facility] Last Admin: 07/18/17 08:32 Dose: 30 mg Fluoxetine HCl (Prozac) 20 mg PO DAILY [facility] Last Admin: 07/18/17 08:32 Dose: 20 mg Glucagon (Glucagon) 1 mg IM PRN PRN PRN Reason: Hypoglycemia Guaifenesin/Dextromethorphan (Robitussin Dm) 15 ml PO Q4H PRN PRN Reason: Cough Dextrose/Water (D5w) 1,000 mls @ 0 mls/hr IV .Q0M PRN; As Directed PRN Reason: Hypoglycemia Insulin Detemir 20 units/ (Miscellaneous Medication) 0.2 mls @ 0 mls/hr SC BID [facility] Last Admin: 07/18/17 08:35 Dose: 0.2 mls Levofloxacin 500 mg/ Device 100 mls @ 100 mls/hr IVPB Q24HR@0900 [facility] Last Admin: 07/18/17 08:32 Dose: 100 mls Insulin Human Lispro (Humalog) 0 units SC .MODERATE SLIDING SC PRN PRN Reason: Moderate Correctional Scale Insulin Human Lispro (Humalog) 0 units SC .BEDTIME SLIDING SC PRN PRN Reason: Bedtime Correctional Scale Isosorbide Mononitrate (Imdur Er) 30 mg PO DAILY [facility] Last Admin: 07/18/17 08:32 Dose: 30 mg Levothyroxine Sodium (Synthroid) 150 mcg PO 0600 [facility] Last Admin: 07/18/17 05:44 Dose: 150 mcg Pantoprazole Sodium (Protonix) 40 mg PO DAILY [facility] Last Admin: 07/18/17 08:32 Dose: 40 mg
--- NOTE | 2017-07-18 16:00 | PRG ---
DATE OF SERVICE: 07/18/2017 SUBJECTIVE: Ms. Munoz has had no overt GI bleeding. She is breathing better today. OBJECTIVE: VITAL SIGNS: Temperature 98.0, pulse 69, blood pressure 142/66. GENERAL: She is in no acute distress, alert and oriented x3. LUNGS: Clear to auscultation bilaterally. HEART: Regular rate and rhythm. ABDOMEN: Soft, nontender, nondistended, bowel sounds are present. EXTREMITIES: No lower extremity edema. LABORATORY DATA: Her hemoglobin is 8.1, status post 1 unit transfusion last night. She also receive d a unit the night before. IMPRESSION: 1. Iron deficiency anemia. This is likely from chronic uterine bleeding; however, gastrointestinal source also needs to be considered. 2. Nausea and vomiting in the mornings over the last couple of weeks. 3. Chronic diarrhea with 1 watery stool per day over the last couple of months. This could be relat ed to metformin and stool studies have been ordered to evaluate that as well. 4. History of stroke, on aspirin and Plavix. 5. Chest pain and shortness of breath with history of hypertension, diabetes, and family history of cardiac disease. Cardiology is evaluating her with a stress test tomorrow. RECOMMENDATIONS: 1. Await stool studies. 2. Proton pump inhibitor. 3. Followup H. pylori antibody. 4. Followup tissue transglutaminase antibody. 5. Plan EGD and colonoscopy after the cardiac evaluation is complete.
[2017-07-18] MEDS ORDERED: Iron Sucrose Complex 200 MG in Sodium Chloride 0.9% 250 ML 250 ML IVPB SCH (17:15)
[2017-07-18] MEDS ORDERED: Sodium Ferric Gluconate 250 MG in Sodium Chloride 0.9% 100 ML IVPB SCH (17:45)
--- NOTE | 2017-07-18 17:50 | PRG ---
DATE OF SERVICE: 07/18/2017 The patient was seen and examined, seems to be doing much better, noted with the following vital sign s. PHYSICAL EXAMINATION: VITAL SIGNS: Afebrile with temperature 99.4, pulse 71, respiratory rate 16, O2 sat 96%, blood pressu re 145/67. HEENT: Unremarkable. CARDIOVASCULAR: First and second heart sounds were heard. RESPIRATORY: Clear to auscultation. DIGESTIVE: Revealed a benign abdomen with positive bowel sounds. EXTREMITIES: No peripheral edema. SKIN: No new gross rash. LYMPHATICS: No peripheral lymphadenopathy. LABORATORY INVESTIGATION: Significant for, 1. Severe iron deficiency. 2. Moderately advanced chronic kidney disease stage IV. 3. Anemia, likely in the context of iron deficiency, plus or minus. 4. Anemia of chronic kidney disease. 5. Hypertension. PLAN: 1. Discontinue IV diuretics. 2. Iron infusion to address the iron deficiency in this patient with advanced chronic kidney disease . 3. Further management to be dependent on the clinical course. Please completely avoid metformin in this patient during the renal function.
[2017-07-18] MEDS: Atorvastatin Calcium 40 MG TAB PO SCH (20:24)
[2017-07-19] MEDS: cloNIDine 0.1 MG TAB PO PRN (01:48)
[2017-07-19] MEDS: Acetaminophen 325 MG TAB PO PRN ×2 (01:48→23:12)
[2017-07-19] MEDS: Levothyroxine 150 MCG TAB PO SCH (05:24)
[2017-07-19 06:30] LABS: Anion Gap 13 mmol/L (10-20); BUN (Urea Nitrogen) 33 mg/dL (7.0-18.7); Calc. Creatinine Clearance 33 mL/min (70-130); Calcium 8.6 mg/dL (7.8-10.44); Carbon Dioxide 19 mmol/L (22-29); Chloride 107 mmol/L (98-107); Estimated GFR-MDRD 14; Glucose 201 mg/dL (70-105); Potassium 3.9 mmol/L (3.5-5.1); Sodium 135 mmol/L (136-145)
[2017-07-19] MEDS: Ondansetron HCl/PF 4 MG/2 ML Vial IVP PRN (08:36)
[2017-07-19] MEDS ORDERED: Amlodipine 5 MG TAB PO SCH (09:00)
[2017-07-19] MEDS ORDERED: Iron Sucrose Complex 100 MG in Sodium Chloride 0.9% 100 ML IVPB SCH (09:00)
[2017-07-19] MEDS ORDERED: Sodium Ferric Gluconate 125 MG in Sodium Chloride 0.9% 100 ML IVPB SCH (09:00)
--- NOTE | 2017-07-19 09:01 | PRG ---
DATE OF SERVICE: 07/19/2017 HISTORY OF PRESENT ILLNESS: Ms. Munoz's blood pressure has improved, but remains elevated. Her blood pressure this morning was 184/76. Blood pressure through the evening was to 120s to 160. No curren t symptoms. PHYSICAL EXAMINATION: VITAL SIGNS: Blood pressure 184/76, pulse 65, temperature 96.9. LUNGS: Clear to auscultation. CARDIAC: Regular rate and rhythm. ABDOMEN: Soft, nontender, nondistended. EXTREMITIES: No edema. IMPRESSION: 1. Hypertension. 2. Elevated troponin. 3. Chronic kidney disease stage 4. RECOMMENDATIONS: Increase her amlodipine to 10 mg q.a.m. Continue carvedilol at current dose of 25 mg 1 p.o. b.i.d. She is scheduled for a noninvasive stress study. If negative or low risk, would co nsider continued medical therapy. I am concerned that her main driving issue to her renal dysfunctio n is uncontrolled hypertension.
[2017-07-19] MEDS: Amlodipine 10 MG TAB PO SCH (09:03)
[2017-07-19] MEDS ORDERED: hydrALAZINE 20 MG/ML VIAL SLOW IVP PRN (09:07)
[2017-07-19] MEDS: Enoxaparin Sodium 30 MG/0.3 ML SYRINGE SC SCH (10:42)
[2017-07-19] MEDS ORDERED: ADENOSINE 60 MG/20 ML VIAL ONE (12:32)
[2017-07-19] MEDS: ADMIXTURE FEE SC SCH ×2 (14:16→20:26)
[2017-07-19] MEDS: INSULIN DETEMIR SC SCH ×2 (14:16→20:26)
[2017-07-19] MEDS: Carvedilol 25 MG TAB PO SCH ×2 (14:16→20:25)
[2017-07-19] MEDS: FLUoxetine HCl 20 MG CAP PO SCH (14:16)
[2017-07-19] MEDS: Clopidogrel Bisulfate 75 MG TAB PO SCH (14:16)
--- NOTE | 2017-07-19 14:20 | PQF ---
CLINICAL DOCUMENTATION IMPROVEMENT CLARIFICATION FORM: ICD-10 Updated PLEASE DO AN ADDENDUM TO THE PROGRESS NOTE WITH ANY DOCUMENTATION UPDATES OR ADDITIONS AND CARRY THROUGH TO DC SUMMARY. THANK YOU. DATE: 07/19/17 ATTN: Dr. Garcia Please exercise your independent, professional judgment in responding to the clarification form. Clinical indicators are provided on the bottom of this form for your review Please check appropriate box(s): HEART FAILURE: A. TYPE: [ ] Systolic / HFrEF [ ] Diastolic / HFpEF [ ] Combined Systolic / Diastolic [X ] Other diagnosis Fluid overload due to uncontrolled HTN [ ] Unable to determine In addition, please specify: Present on Admission (POA): [ ] Yes [ ] No [ X ] Unable to determine For continuity of documentation, please document condition throughout progress notes and discharge summary. Thank You. CLINICAL INDICATORS - SIGNS / SYMPTOMS / LABS H&P: CHEST XRY SHOWS CARDIOMEGALY W/ MILD PULMONARY VASCULAR CONGESTION PN 2/: BNP 2/: 1173.4 FLUID OVERLOAD. ACUTE EXACERBATION OF CHF. SUSPECTED PLAN: ECHO W PRESERVED EF RISKS: H&P: HX CKD 2 TO 3, DM 2, HTN. PRIOR CVA. TREATMENT: CPOE 2/2: LASIX 40 MG IV 0600, 1400. DC'D / CPOE 2/2: COREG 25 MG PO BID. Thank you, Gladys (This form is maintained as a part of the permanent medical record) 2014 [employer] All Rights Reserved Gladys Mckeon RN, BSN [email or web address] Office: [phone] [facility]
--- NOTE | 2017-07-19 15:30 | PDOC.PN ---
- Subjective Encounter Start Date: 07/19/17 Encounter Start Time: 15:30 Subjective: feels OK.vomited during stress test but better now - Objective Resuscitation Status: Resuscitation Status FULL:Full Resuscitation MAR Reviewed: Yes Vital Signs & Weight: Vital Signs (12 hours) Temp Pulse Resp BP BP Pulse Ox 07/19/17 11:42 75 193/77 H 07/19/17 11:25 97.9 F 75 18 193/77 H 07/19/17 10:45 75 18 167/77 H 93 L 07/19/17 09:03 65 184/76 H 07/19/17 07:50 96.9 F L 75 16 184/76 H 96 07/19/17 03:52 98.2 F 73 18 127/79 95 Weight Weight 226 lb 3 oz I&O: 07/18/17 07/19/17 07/20/17 06:59 06:59 06:59 Intake Total 1970 1660 Output Total 4175 3450 Balance -2205 -1790 Result Diagrams: 07/19/17 04:47 07/19/17 04:47 Additional Labs: Accuchecks 07/19/17 07/18/17 07/18/17 11:21 20:05 16:53 POC Glucose 162 H 201 H 162 H Radiology Reviewed by me: Yes (NM stress- No fixed or reversible defect) Phys Exam - Physical Examination Constitutional: NAD HEENT: PERRLA, moist MMs, sclera anicteric, oral pharynx no lesions Neck: no nodes, no JVD, supple, full ROM Respiratory: no wheezing, no rales, no rhonchi, clear to auscultation bilateral Cardiovascular: RRR, no significant murmur Gastrointestinal: soft, non-tender, no distention, positive bowel sounds Musculoskeletal: no edema, pulses present Neurological: non-focal, normal sensation, moves all 4 limbs Psychiatric: normal affect, A&O x 3 Skin: no rash Dx/Plan (1) Fluid overload Code(s): E87.70 - FLUID OVERLOAD, UNSPECIFIED Status: Acute Qualifiers: Hypervolemia type: other Qualified Code(s): E87.79 - Other fluid overload Comment: likley flash pulmonary edema d/t uncontrolled HTN.ECHO without any significant dysfunction (2) ILDEFONSO (acute kidney injury) Code(s): N17.9 - ACUTE KIDNEY FAILURE, UNSPECIFIED Status: Acute Comment: Improving. nephrology following. Noel Diabetic nephropathy (3) Demand ischemia of myocardium Code(s): I24.8 - OTHER FORMS OF ACUTE ISCHEMIC HEART DISEASE Status: Acute Comment: Noel d/t severe anemia w PNA (4) Iron deficiency anemia Code(s): D50.9 - IRON DEFICIENCY ANEMIA, UNSPECIFIED Status: Acute Qualifiers: Iron deficiency anemia type: chronic blood loss Qualified Code(s): D50.0 - Iron deficiency anemia secondary to blood loss (chronic) Comment: GI work up underway. ? due to heavy menstrual Bleeding.S/P 2 unit PRBC and IV iron (5) PNA (pneumonia) Code(s): J18.9 - PNEUMONIA, UNSPECIFIED ORGANISM Status: Acute Qualifiers: Pneumonia type: due to unspecified organism Laterality: right Lung location: middle lobe of lung Qualified Code(s): J18.1 - Lobar pneumonia, unspecified organism (6) DM type 2 (diabetes mellitus, type 2) Status: Chronic Qualifiers: Diabetes mellitus complication status: with ophthalmic complications Diabetes mellitus complication detail: with other ophthalmic complication Diabetes mellitus terminal worker insulin use: without terminal worker use Qualified Code( s): E11.39 - Type 2 diabetes mellitus with other diabetic ophthalmic complication (7) Diabetic neuropathy Code(s): E11.40 - TYPE 2 DIABETES MELLITUS WITH DIABETIC NEUROPATHY, UNSP Status: Acute (8) CVA (cerebral vascular accident) Code(s): I63.9 - CEREBRAL INFARCTION, UNSPECIFIED Status: Chronic Qualifiers: CVA mechanism: unspecified Qualified Code(s): I63.9 - Cerebral infarction, unspecified Comment: no residual paralysis (9) Chronic kidney disease (CKD) Code(s): N18.9 - CHRONIC KIDNEY DISEASE, UNSPECIFIED Status: Chronic Qualifiers: Chronic kidney disease stage: stage 2 (mild) Qualified Code(s): N18.2 - Chronic kidney disease, stage 2 (mild) (10) Hyperlipidemia Code(s): E78.5 - HYPERLIPIDEMIA, UNSPECIFIED Status: Chronic Qualifiers: Hyperlipidemia type: unspecified Qualified Code(s): E78.5 - Hyperlipidemia , unspecified (11) Hypertension Code(s): I10 - ESSENTIAL (PRIMARY) HYPERTENSION Status: Chronic Qualifiers: Hypertension type: essential hypertension Qualified Code(s): I10 - Essential (primary) hypertension (12) Obesity Code(s): E66.9 - OBESITY, UNSPECIFIED Status: Chronic Qualifiers: Obesity classification: adult class 2 (BMI 35 - 39.9) (13) Acute exacerbation of CHF (congestive heart failure) Code(s): I50.9 - HEART FAILURE, UNSPECIFIED Status: Suspected Qualifiers: Congestive heart failure type: unspecified congestive heart failure type Qualified Code(s): I50.9 - Heart failure, unspecified Comment: Improved - Plan continue antibiotics, PT/OT, social science professor, out of bed/ambulate, DVT proph w/ SCDs Renal Fx stable. noel Hypertensive & diabetic CKD.nephrology folloiwng -: H/H stable.DC IV iron .GI work up as per Dr. Tirado. -: Cont empiric ABx for PNA> follolowing Cx results' -: Lasix stopped d/t worsening renal Fx.monitor for fluid OL. -: HD stable.am labs.meds as below.cont Plavix,statin,BB. * .Started on Imdur yesterday-BP still high.Amlodipine dose increased today.follow. * Review of Systems - Review of Systems Constitutional: negative: fever, chills, sweats, weakness, malaise, other ENT: negative: Ear Pain, Ear Discharge, Nose Pain, Nose Discharge, Nose Congestion, Mouth Pain, Mouth Swelling, Throat Pain, Throat Swelling, Other Respiratory: negative: Cough, Dry, Shortness of Breath, Hemoptysis, SOB with Excertion, Pleuritic Pain, Sputum, Wheezing Cardiovascular: negative: chest pain, palpitations, orthopnea, paroxysmal nocturnal dyspnea, edema, light headedness, other Gastrointestinal: negative: Nausea, Vomiting, Abdominal Pain, Diarrhea, Constipation, Melena, Hematochezia, Other Genitourinary: negative: Dysuria, Frequency, Incontinence, Hematuria, Retention , Other Musculoskeletal: negative: Neck Pain, Shoulder Pain, Arm Pain, Back Pain, Hand Pain, Leg Pain, Foot Pain, Other Neurological: negative: Weakness, Numbness, Incoordination, Change in Speech, Confusion, Seizures, Other - Medications/Allergies Allergies/Adverse Reactions: Allergies Allergy/AdvReac Type Severity Reaction Status Date / Time peanut Allergy Intermediate Emesis Verified 07/16/17 22:46 Medications: Current Medications Acetaminophen (Tylenol) 650 mg PO Q4H PRN PRN Reason: Headache/Fever or Pain Last Admin: 07/19/17 01:48 Dose: 650 mg Alprazolam (Xanax) 1 mg PO Q6H PRN PRN Reason: Anxiety Last Admin: 07/17/17 16:34 Dose: 1 mg Amlodipine Besylate (Norvasc) 10 mg PO DAILY [facility] Last Admin: 07/19/17 09:03 Dose: 10 mg Atorvastatin Calcium (Lipitor) 40 mg PO HS [facility] Last Admin: 07/18/17 20:24 Dose: 40 mg Carvedilol (Coreg) 25 mg PO BID [facility] Last Admin: 07/19/17 14:16 Dose: Not Given Clonidine (Catapres) 0.1 mg PO Q4H PRN PRN Reason: SBP > 180 Last Admin: 07/19/17 01:48 Dose: 0.1 mg Clopidogrel Bisulfate (Plavix) 75 mg PO DAILY [facility] Last Admin: 07/19/17 14:16 Dose: Not Given Dextrose/Water (Dextrose 50%) 25 gm SLOW IVP PRN PRN PRN Reason: Hypoglycemia Enoxaparin Sodium (Lovenox) 30 mg SC 0900 [facility] Last Admin: 07/19/17 10:42 Dose: 30 mg Fluoxetine HCl (Prozac) 20 mg PO DAILY [facility] Last Admin: 07/19/17 14:16 Dose: Not Given Glucagon (Glucagon) 1 mg IM PRN PRN PRN Reason: Hypoglycemia Guaifenesin/Dextromethorphan (Robitussin Dm) 15 ml PO Q4H PRN PRN Reason: Cough Hydralazine HCl (Apresoline) 10 mg SLOW IVP Q4H PRN PRN Reason: SBP>170 Last Admin: 07/19/17 11:42 Dose: 10 mg Dextrose/Water (D5w) 1,000 mls @ 0 mls/hr IV .Q0M PRN; As Directed PRN Reason: Hypoglycemia Insulin Detemir 20 units/ (Miscellaneous Medication) 0.2 mls @ 0 mls/hr SC BID [facility] Last Admin: 07/19/17 14:16 Dose: Not Given Levofloxacin 500 mg/ Device 100 mls @ 100 mls/hr IVPB Q24HR@0900 [facility] Last Admin: 07/19/17 10:41 Dose: 100 mls Ferric Sodium Gluconate Complex 125 mg/ Sodium Chloride 110 mls @ 110 mls/hr IVPB DAILY [facility] Last Admin: 07/19/17 14:29 Dose: 110 mls Insulin Human Lispro (Humalog) 0 units SC .MODERATE SLIDING SC PRN PRN Reason: Moderate Correctional Scale Insulin Human Lispro (Humalog) 0 units SC .BEDTIME SLIDING SC PRN PRN Reason: Bedtime Correctional Scale Isosorbide Mononitrate (Imdur Er) 30 mg PO DAILY [facility] Last Admin: 07/19/17 14:17 Dose: Not Given Levothyroxine Sodium (Synthroid) 150 mcg PO 0600 [facility] Last Admin: 07/19/17 05:24 Dose: 150 mcg Ondansetron HCl (Zofran) 4 mg IVP Q6H PRN PRN Reason: Nausea/Vomiting Last Admin: 07/19/17 08:36 Dose: 4 mg Pantoprazole Sodium (Protonix) 40 mg PO DAILY [facility] Last Admin: 07/19/17 14:17 Dose: Not Given
--- NOTE | 2017-07-19 15:44 | NM ---
MYOCARDIAL PERFUSION EVALUATION: INDICATIONS: Chest pain. RADIOPHARMACEUTICAL: Technetium 99m sestamibi 30 millicuries IV with stress. Technetium 99m sestamibi 9.5 millicuries with rest. FINDINGS: There is left ventricular dilatation seen on both rest and stress images. There is a moderate sized region of moderately reduced activity involving the mid to apical anterior wall, on both the rest and stress images. There is also a moderate amount of reduced activity involving the inferolateral wall of the mid to ap ical left chest wall that is seen on both rest and stress images. The wall motion and thickening appear within normal limits. The estimated LVEF is 48%. IMPRESSION: 1. No definite reversible myocardial perfusion defect demonstrated. 2. Moderate sized region of moderately reduced activity involving the mid to apical anterior wall on both the rest and stress images, which may be related to overlying soft tissue attenuation. 3. Mild sized region of mildly reduced activity involving the inferolateral left ventricular wall, s uspicious for diaphragmatic attenuation. 4. Left ventricular dilatation with slightly diminished left ventricular ejection fraction of 48%. POS: TIN
--- NOTE | 2017-07-19 17:32 | PRG ---
DATE OF SERVICE: 07/19/2017 SUBJECTIVE: She has had no bowel movement since she has been in the hospital. She did have nausea a nd an episode of vomiting this morning. She has done her stress test today, awaiting results. PHYSICAL EXAMINATION: VITAL SIGNS: Temperature 97.9, pulse 75, blood pressure 193/77. GENERAL: She is in no acute distress, alert and oriented x3. LUNGS: Clear to auscultation bilaterally. HEART: Regular rate and rhythm. ABDOMEN: Soft, nontender, nondistended. Bowel sounds are present. EXTREMITIES: No lower extremity edema. IMPRESSION: 1. Iron deficiency anemia. She is receiving IV iron. Uterine bleeding is suspected; however, need to rule out gastrointestinal source as well. 2. Nausea and vomiting persistent over the last couple of weeks. 3. History of chronic diarrhea with 1 watery stool per day. She had no bowel movement since she has been in the hospital. Her metformin has been discontinued by the biology laboratory assistant. Stool studies have been ordered, but since she has not had a bowel movement, are still pending. 4. History of stroke, on aspirin and Plavix. 5. Chest pain and shortness of breath, undergoing Cardiology evaluation. She had a stress test toda y with results pending. RECOMMENDATIONS: I will place her on a clear liquid diet for tomorrow morning in case she is cleared by Cardiology for endoscopy, which we would then prep tomorrow and plan upper and lower endoscopy wednesday.
[2017-07-19] MEDS: HumaLOG 300 UNITS/3 ML VIAL SC PRN (18:07)
[2017-07-19] MEDS: Atorvastatin Calcium 40 MG TAB PO SCH (20:25)
[2017-07-20] MEDS: cloNIDine 0.1 MG TAB PO PRN (00:37)
[2017-07-20] MEDS: Levothyroxine 150 MCG TAB PO SCH (06:02)
[2017-07-20] MEDS: Amlodipine 10 MG TAB PO SCH (08:53)
[2017-07-20] MEDS: Carvedilol 25 MG TAB PO SCH ×2 (08:54→20:32)
[2017-07-20] MEDS: Clopidogrel Bisulfate 75 MG TAB PO SCH (08:55)
[2017-07-20] MEDS: Enoxaparin Sodium 30 MG/0.3 ML SYRINGE SC SCH (08:55)
[2017-07-20] MEDS: FLUoxetine HCl 20 MG CAP PO SCH (08:55)
[2017-07-20] MEDS: ADMIXTURE FEE SC SCH ×2 (08:57→20:39)
[2017-07-20] MEDS: INSULIN DETEMIR SC SCH ×2 (08:57→20:39)
[2017-07-20] MEDS ORDERED: Senokot 8.6 MG TAB PO PRN (09:00)
[2017-07-20] MEDS ORDERED: Bisacodyl 5 MG TAB PO PRN (09:00)
[2017-07-20] MEDS ORDERED: Docusate 100 MG CAP PO PRN (09:00)
[2017-07-20 10:12] LABS: Anion Gap 12 mmol/L (10-20); BUN (Urea Nitrogen) 30 mg/dL (7.0-18.7); Calc. Creatinine Clearance 32 mL/min (70-130); Calcium 8.8 mg/dL (7.8-10.44); Carbon Dioxide 22 mmol/L (22-29); Chloride 105 mmol/L (98-107); Estimated GFR-MDRD 14; Glucose 256 mg/dL (70-105); Potassium 3.9 mmol/L (3.5-5.1); Sodium 135 mmol/L (136-145)
--- NOTE | 2017-07-20 12:20 | PRG ---
DATE OF SERVICE: 07/20/2017 SUBJECTIVE: Ms. Munoz's recent stress study did not suggest significant ischemia. Her LVEF is estim ated at 48%. Her LVEF on echo appeared better and estimated at 55%-60%. She did have moderate cami ntric LVH. PHYSICAL EXAMINATION: VITAL SIGNS: Blood pressure 132/60, pulse 66, temperature afebrile. LUNGS: Clear to auscultation. CARDIAC: Regular rate and rhythm. ABDOMEN: Soft, nontender, nondistended. EXTREMITIES: No edema. IMPRESSION: 1. Elevated troponin. 2. Malignant hypertension. 3. Acute on chronic kidney disease. RECOMMENDATIONS: From a CV standpoint, we would not recommend any further aggressive means or measur es. I would not proceed with angiography. The stress test is negative for ischemia. It is more per tinent to control her blood pressure. Her creatinine also appears worse today. It would be okay fro m my standpoint to proceed with EGD and colonoscopy. May be more important to have Nephrology manage her blood pressure since she does have chronic kidney disease. Otherwise, I have no further recomme ndations.
[2017-07-20] MEDS: HumaLOG 300 UNITS/3 ML VIAL SC PRN (13:16)
--- NOTE | 2017-07-20 13:58 | PRG ---
DATE OF SERVICE: 07/19/2017 SUBJECTIVE: The patient was seen and examined. OBJECTIVE: VITAL SIGNS: Afebrile, pulse 75, respiratory rate 18, O2 sat 93%, blood pressure 186/72. HEENT: Unremarkable with moist oral mucosa. Neck is supple. No conjunctival injection or icterus. CARDIOVASCULAR: First and second heart sounds were heard. RESPIRATORY: Clear to auscultation. DIGESTIVE: Benign abdomen. EXTREMITIES: No peripheral edema. SKIN: No new skin rash. LYMPHATICS: No peripheral lymhadenopathy. IMPRESSION: 1. Acute on chronic kidney disease ____. 2. Diabetes mellitus, diabetic nephropathy. PLAN: 1. We will encourage . 2. Further managment to be dependent on the clinical course.
--- NOTE | 2017-07-20 14:14 | PDOC.PN ---
- Subjective Encounter Start Date: 07/20/17 Encounter Start Time: 14:12 Subjective: feels great.no new complaints - Objective Resuscitation Status: Resuscitation Status FULL:Full Resuscitation MAR Reviewed: Yes Vital Signs & Weight: Vital Signs (12 hours) Temp Pulse Resp BP BP BP Pulse Ox 07/20/17 11:30 98.1 F 71 16 146/65 H 94 L 07/20/17 08:53 69 188/77 H 07/20/17 08:00 97.1 F L 71 16 96 07/20/17 03:41 98.5 F 66 18 132/60 93 L Weight Weight 225 lb 9 oz I&O: 07/19/17 07/20/17 07/21/17 06:59 06:59 06:59 Intake Total 1660 800 Output Total 3450 2250 Balance -1790 -1450 Result Diagrams: 07/19/17 04:47 07/20/17 09:29 Additional Labs: Accuchecks 07/20/17 07/20/17 07/19/17 11:14 06:00 20:22 POC Glucose 195 H 126 H 134 H 07/19/17 17:14 POC Glucose 257 H Microbiology 07/16/17 19:49 Venous blood - Right Arm Blood Culture - Preliminary NO GROWTH AT 48 HOURS 07/16/17 19:49 Venous blood - Left Arm Blood Culture - Preliminary NO GROWTH AT 48 HOURS Laboratory Tests 07/16/17 07/16/17 07/16/17 14:04 14:04 14:04 Creatinine 3.07 H POC Glucose Troponin I 0.317 H* B-Natriuretic Peptide 1173.4 H IgA Total 07/16/17 07/16/17 07/16/17 20:25 23:03 23:03 Creatinine POC Glucose 168 H Troponin I 0.315 H* 0.287 H B-Natriuretic Peptide IgA Total 07/17/17 07/17/17 07/17/17 05:42 11:26 16:27 Creatinine 3.01 H POC Glucose 110 96 Troponin I B-Natriuretic Peptide IgA Total 07/17/17 07/18/17 07/18/17 19:51 05:22 05:54 Creatinine 3.04 H POC Glucose 147 H 92 Troponin I B-Natriuretic Peptide IgA Total 07/18/17 07/18/17 07/18/17 11:16 16:53 20:05 Creatinine POC Glucose 122 H 162 H 201 H Troponin I B-Natriuretic Peptide IgA Total 07/19/17 07/19/17 07/20/17 04:47 09:20 09:29 Creatinine 3.40 H 3.42 H POC Glucose Troponin I B-Natriuretic Peptide 1437.8 H IgA Total 120.00 Phys Exam - Physical Examination Constitutional: NAD HEENT: PERRLA, moist MMs, sclera anicteric, oral pharynx no lesions Neck: no nodes, no JVD, supple, full ROM Respiratory: no wheezing, no rales, no rhonchi, clear to auscultation bilateral Cardiovascular: RRR, no significant murmur Gastrointestinal: soft, non-tender, no distention, positive bowel sounds Musculoskeletal: no edema, pulses present Neurological: non-focal, normal sensation, moves all 4 limbs Psychiatric: normal affect, A&O x 3 Skin: no rash Dx/Plan (1) Fluid overload Code(s): E87.70 - FLUID OVERLOAD, UNSPECIFIED Status: Acute Qualifiers: Hypervolemia type: other Qualified Code(s): E87.79 - Other fluid overload Comment: noel flash pulmonary edema d/t uncontrolled HTN.ECHO without any significant dysfunction (2) ILDEFONSO (acute kidney injury) Code(s): N17.9 - ACUTE KIDNEY FAILURE, UNSPECIFIED Status: Acute Comment: Improving. nephrology following. Noel Diabetic nephropathy (3) Demand ischemia of myocardium Code(s): I24.8 - OTHER FORMS OF ACUTE ISCHEMIC HEART DISEASE Status: Acute Comment: Noel d/t severe anemia w PNA (4) Iron deficiency anemia Code(s): D50.9 - IRON DEFICIENCY ANEMIA, UNSPECIFIED Status: Acute Qualifiers: Iron deficiency anemia type: chronic blood loss Qualified Code(s): D50.0 - Iron deficiency anemia secondary to blood loss (chronic) Comment: GI work up underway. ? due to heavy menstrual Bleeding.S/P 2 unit PRBC and IV iron (5) PNA (pneumonia) Code(s): J18.9 - PNEUMONIA, UNSPECIFIED ORGANISM Status: Acute Qualifiers: Pneumonia type: due to unspecified organism Laterality: right Lung location: middle lobe of lung Qualified Code(s): J18.1 - Lobar pneumonia, unspecified organism (6) DM type 2 (diabetes mellitus, type 2) Status: Chronic Qualifiers: Diabetes mellitus complication status: with ophthalmic complications Diabetes mellitus complication detail: with other ophthalmic complication Diabetes mellitus director long term care insulin use: without snf use Qualified Code( s): E11.39 - Type 2 diabetes mellitus with other diabetic ophthalmic complication (7) Diabetic neuropathy Code(s): E11.40 - TYPE 2 DIABETES MELLITUS WITH DIABETIC NEUROPATHY, UNSP Status: Acute (8) CVA (cerebral vascular accident) Code(s): I63.9 - CEREBRAL INFARCTION, UNSPECIFIED Status: Chronic Qualifiers: CVA mechanism: unspecified Qualified Code(s): I63.9 - Cerebral infarction, unspecified Comment: no residual paralysis (9) Chronic kidney disease (CKD) Code(s): N18.9 - CHRONIC KIDNEY DISEASE, UNSPECIFIED Status: Chronic Qualifiers: Chronic kidney disease stage: stage 2 (mild) Qualified Code(s): N18.2 - Chronic kidney disease, stage 2 (mild) (10) Hyperlipidemia Code(s): E78.5 - HYPERLIPIDEMIA, UNSPECIFIED Status: Chronic Qualifiers: Hyperlipidemia type: unspecified Qualified Code(s): E78.5 - Hyperlipidemia , unspecified (11) Hypertension Code(s): I10 - ESSENTIAL (PRIMARY) HYPERTENSION Status: Chronic Qualifiers: Hypertension type: essential hypertension Qualified Code(s): I10 - Essential (primary) hypertension (12) Obesity Code(s): E66.9 - OBESITY, UNSPECIFIED Status: Chronic Qualifiers: Obesity classification: adult class 2 (BMI 35 - 39.9) (13) Acute exacerbation of CHF (congestive heart failure) Code(s): I50.9 - HEART FAILURE, UNSPECIFIED Status: Suspected Qualifiers: Congestive heart failure type: unspecified congestive heart failure type Qualified Code(s): I50.9 - Heart failure, unspecified Comment: Improved - Plan PT/OT, respiratory therapy, incentive spirometry, out of bed/ambulate, DVT proph w/SCDs Hemodynamically stable. BP much improved.cont amlodipine,coreg & Imdur -: EGD/Colonoscopy tomorrow to r/o GI causes of blood loss.No active bleed -: Renal Fx stable.Avoid nephrotoxics meds. nephrolofy following -: Stress test WNL.cont medical amangement w BP control -: OK to transfer to medical. * . Review of Systems - Review of Systems Constitutional: negative: fever, chills, sweats, weakness, malaise, other ENT: negative: Ear Pain, Ear Discharge, Nose Pain, Nose Discharge, Nose Congestion, Mouth Pain, Mouth Swelling, Throat Pain, Throat Swelling, Other Respiratory: negative: Cough, Dry, Shortness of Breath, Hemoptysis, SOB with Excertion, Pleuritic Pain, Sputum, Wheezing Cardiovascular: negative: chest pain, palpitations, orthopnea, paroxysmal nocturnal dyspnea, edema, light headedness, other Gastrointestinal: negative: Nausea, Vomiting, Abdominal Pain, Diarrhea, Constipation, Melena, Hematochezia, Other Genitourinary: negative: Dysuria, Frequency, Incontinence, Hematuria, Retention , Other Musculoskeletal: negative: Neck Pain, Shoulder Pain, Arm Pain, Back Pain, Hand Pain, Leg Pain, Foot Pain, Other Neurological: negative: Weakness, Numbness, Incoordination, Change in Speech, Confusion, Seizures, Other - Medications/Allergies Allergies/Adverse Reactions: Allergies Allergy/AdvReac Type Severity Reaction Status Date / Time peanut Allergy Intermediate Emesis Verified 07/16/17 22:46 Medications: Current Medications Acetaminophen (Tylenol) 650 mg PO Q4H PRN PRN Reason: Headache/Fever or Pain Last Admin: 07/19/17 23:12 Dose: 650 mg Alprazolam (Xanax) 1 mg PO Q6H PRN PRN Reason: Anxiety Last Admin: 07/17/17 16:34 Dose: 1 mg Amlodipine Besylate (Norvasc) 10 mg PO DAILY [facility] Last Admin: 07/20/17 08:53 Dose: 10 mg Atorvastatin Calcium (Lipitor) 40 mg PO HS [facility] Last Admin: 07/19/17 20:25 Dose: 40 mg Bisacodyl (Dulcolax) 10 mg PO DAILYPRN PRN PRN Reason: Constipation Carvedilol (Coreg) 25 mg PO BID [facility] Last Admin: 07/20/17 08:54 Dose: 25 mg Clonidine (Catapres) 0.1 mg PO Q4H PRN PRN Reason: SBP > 180 Last Admin: 07/20/17 00:37 Dose: 0.1 mg Clopidogrel Bisulfate (Plavix) 75 mg PO DAILY [facility] Last Admin: 07/20/17 08:55 Dose: 75 mg Dextrose/Water (Dextrose 50%) 25 gm SLOW IVP PRN PRN PRN Reason: Hypoglycemia Docusate Sodium (Colace) 100 mg PO BIDPRN PRN PRN Reason: Constipation Enoxaparin Sodium (Lovenox) 30 mg SC 0900 [facility] Last Admin: 07/20/17 08:55 Dose: 30 mg Fluoxetine HCl (Prozac) 20 mg PO DAILY [facility] Last Admin: 07/20/17 08:55 Dose: 20 mg Glucagon (Glucagon) 1 mg IM PRN PRN PRN Reason: Hypoglycemia Guaifenesin/Dextromethorphan (Robitussin Dm) 15 ml PO Q4H PRN PRN Reason: Cough Hydralazine HCl (Apresoline) 10 mg SLOW IVP Q4H PRN PRN Reason: SBP>170 Last Admin: 07/19/17 11:42 Dose: 10 mg Dextrose/Water (D5w) 1,000 mls @ 0 mls/hr IV .Q0M PRN; As Directed PRN Reason: Hypoglycemia Insulin Detemir 20 units/ (Miscellaneous Medication) 0.2 mls @ 0 mls/hr SC BID [facility] Last Admin: 07/20/17 08:57 Dose: 0.2 mls Levofloxacin 500 mg/ Device 100 mls @ 100 mls/hr IVPB Q24HR@0900 [facility] Last Admin: 07/20/17 08:59 Dose: 100 mls Insulin Human Lispro (Humalog) 0 units SC .MODERATE SLIDING SC PRN PRN Reason: Moderate Correctional Scale Last Admin: 07/20/17 13:16 Dose: 2 unit Insulin Human Lispro (Humalog) 0 units SC .BEDTIME SLIDING SC PRN PRN Reason: Bedtime Correctional Scale Isosorbide Mononitrate (Imdur Er) 30 mg PO DAILY [facility] Last Admin: 07/20/17 08:58 Dose: 30 mg Levothyroxine Sodium (Synthroid) 150 mcg PO 0600 [facility] Last Admin: 07/20/17 06:02 Dose: 150 mcg Ondansetron HCl (Zofran) 4 mg IVP Q6H PRN PRN Reason: Nausea/Vomiting Last Admin: 07/19/17 08:36 Dose: 4 mg Pantoprazole Sodium (Protonix) 40 mg PO DAILY [facility] Last Admin: 07/20/17 09:00 Dose: 40 mg Polyethylene Glycol/Electrolytes (Golytely) 2,000 ml PO 0700,1800 [facility] Stop: 07/21/17 11:59 Senna (Senokot) 1 tab PO HSPRN PRN PRN Reason: Constipation
--- NOTE | 2017-07-20 14:18 | PRG ---
DATE OF SERVICE: 07/20/2017 SUBJECTIVE: Ms. Munoz has no acute complaints today. Her blood pressure is a little better controlle d today. OBJECTIVE: VITAL SIGNS: Temperature 98.1, pulse 71, blood pressure 146/65. GENERAL: She is in no acute distress, awake and alert. LUNGS: Clear to auscultation bilaterally. HEART: Regular rate and rhythm without murmur. ABDOMEN: Soft, nontender, nondistended. Bowel sounds are present. EXTREMITIES: No lower extremity edema. LABORATORY DATA: Hemoglobin was stable at 8.0 yesterday. There has been no overt bleeding. Creatin ine 3.42. IMPRESSION: 1. Iron deficiency anemia. She has received IV iron here in the hospital. Abnormal uterine bleedin g is suspected. We will rule out gastrointestinal source for anemia as well. 2. Nausea and vomiting in the mornings over the last couple of weeks. 3. History of chronic diarrhea with 1 watery stool per day. This has been better here in the hospit al. She has been off the metformin due to declining renal function. Stool studies have been ordered if the diarrhea flares up again. 4. History of stroke on aspirin and Plavix. 5. Admission with chest pain and mild elevation of the troponin. She has been evaluated by Cardiolo gy with a negative stress test. I believe that her symptoms may be largely due to the hypertension. RECOMMENDATIONS: We will follow through with the EGD and colonoscopy tomorrow.
[2017-07-20] MEDS: GoLYTELY 4,000 ml Bottle PO SCH (20:31)
[2017-07-20] MEDS: Atorvastatin Calcium 40 MG TAB PO SCH (20:32)
[2017-07-21] MEDS: Acetaminophen 325 MG TAB PO PRN (00:12)
[2017-07-21] MEDS: Sodium Chloride 0.9% 1,000 ML IV SCH ×2 (02:20→15:27)
[2017-07-21] MEDS: Ondansetron HCl/PF 4 MG/2 ML Vial IVP PRN ×2 (02:48→08:24)
[2017-07-21 04:36] LABS: INR-International Normal Ratio 1.2; PTT 38.5 SEC (22.9-36.1); Prothrombin Time 15.5 SEC (12.0-14.7)
[2017-07-21 04:47] LABS: Anion Gap 11 mmol/L (10-20); BUN (Urea Nitrogen) 30 mg/dL (7.0-18.7); Calc. Creatinine Clearance 33 mL/min (70-130); Calcium 8.8 mg/dL (7.8-10.44); Carbon Dioxide 26 mmol/L (22-29); Chloride 106 mmol/L (98-107); Estimated GFR-MDRD 15; Glucose 77 mg/dL (70-105); Potassium 4.1 mmol/L (3.5-5.1); Sodium 139 mmol/L (136-145)
[2017-07-21 04:50] LABS: #Basophils 0.1 thou/uL (0.0-0.2); #Eosinphils 0.4 thou/uL (0.0-0.7); #Lymphocytes 2.1 thou/uL (1.20-3.40); #Monocytes 0.7 thou/uL (0.11-0.59); #Neutrophils 4.5 thou/uL (1.40-6.50); %Basophils 0.8 % (0.0-1.0); %Eosinophils 4.7 % (0.0-10.0); %Lymphocytes 26.9 % (21.0-51.0); %Monocytes 8.8 % (0.0-10.0); %Neutrophils 58.8 % (42.0-75.0); Hemoglobin 8.3 g/dL (12.0-16.0); Mean Corpuscular HGB CONC 33.9 g/dL (32.0-36.0); Mean Corpuscular Hemoglobin 29.9 pg (27.0-31.0); Mean Corpuscular Volume 88.1 fl (81.0-99.0); Mean Platelet Volume 7.5 fL (7.4-10.4); Platelet Count 196 thou/uL (130-400); Red Blood Cell (RBC) Count 2.77 mill/uL (4.20-5.40); White Blood Cell (WBC) Count 7.7 thou/uL (4.8-10.8)
[2017-07-21] MEDS: Levothyroxine 150 MCG TAB PO SCH (05:06)
[2017-07-21] MEDS ORDERED: Iron Sucrose Complex 200 MG in Sodium Chloride 0.9% 250 ML 250 ML IVPB SCH (06:00)
[2017-07-21] MEDS: GoLYTELY 4,000 ml Bottle PO SCH (06:29)
--- NOTE | 2017-07-21 06:34 | PRG ---
DATE OF SERVICE: 07/20/2017 SUBJECTIVE: Ms. Radha Munoz was seen and examined, seems to be doing much better. PHYSICAL EXAMINATION: VITAL SIGNS: Afebrile with temperature 98.1, pulse 69, respiratory rate 17, O2 saturation 98%, blood pressure 153/80. HEENT: Unremarkable with moist oral mucosa. No conjunctival injection or icterus. NECK: Supple. CARDIOVASCULAR: First and second heart sounds were heard. RESPIRATORY: Clear to auscultation. DIGESTIVE: Revealed a benign abdomen. EXTREMITIES: No peripheral edema. SKIN: No new gross rash. LYMPHATICS: No peripheral lymphadenopathy. LABORATORY INVESTIGATIONS: Showed a creatinine of 3.42 with BUN of 30, glucose 256. IMPRESSION: 1. Advanced chronic kidney disease stage IV/V in the context of problem #2. 2. Diabetic nephropathy. 3. Anemia, partly iron deficient anemia as well as anemia of chronic kidney disease. PLAN: 1. We will give more iron infusion as I do not trust the oral iron intake in this patient given the limiting effect of gastrointestinal tract absorption of iron in this degree of renal failure due to t he presence of hepcidin. 4. Erythropoiesis stimulating agent strongly indicated in this patient. 5. Further management to be dependent on the clinical course as well as the decision on an erythropo iesis stimulating agent, status post replenishing the iron storage in this patient.
[2017-07-21] MEDS: Carvedilol 25 MG TAB PO SCH (08:55)
[2017-07-21] MEDS: Enoxaparin Sodium 30 MG/0.3 ML SYRINGE SC SCH (08:55)
[2017-07-21] MEDS: FLUoxetine HCl 20 MG CAP PO SCH (08:55)
[2017-07-21] MEDS: Clopidogrel Bisulfate 75 MG TAB PO SCH (08:55)
--- NOTE | 2017-07-21 08:55 | PRG ---
DATE OF SERVICE: 07/21/2017 Ms. Munoz has been transferred to [facility]. Her recent stress study had no significant areas suggestin g ischemia. PHYSICAL EXAMINATION: VITAL SIGNS: Blood pressure 146/84, pulse 70, temperature 98.5. LUNGS: Clear to auscultation. CARDIAC: Regular rate and rhythm. ABDOMEN: Soft. Nontender, nondistended. EXTREMITIES: No edema. IMPRESSION: 1. Malignant hypertension. 2. Chronic kidney disease. 3. Mildly elevated troponin with normal stress study. RECOMMENDATIONS: From a cardiac standpoint, she is stable. I would recommend aggressive blood press ure management. Her blood pressure appears improved today. Any further recommendation will be per Flora martin given her renal dysfunction. Otherwise, from my standpoint, I have no further recommendations.
[2017-07-21] MEDS: Amlodipine 10 MG TAB PO SCH (08:56)
[2017-07-21] MEDS: INSULIN DETEMIR SC SCH (09:40)
[2017-07-21] MEDS: ADMIXTURE FEE SC SCH (09:40)
[2017-07-21] MEDS ORDERED: Promethazine HCl 25 MG/ML VIAL IM PRN (13:59)
[2017-07-21] MEDS ORDERED: Promethazine HCl 25 MG/ML VIAL SLOW IVP PRN (13:59)
[2017-07-21] MEDS ORDERED: Ondansetron HCl/PF 4 MG/2 ML Vial IVP PRN (13:59)
--- NOTE | 2017-07-21 14:17 | OP ---
PREOPERATIVE DIAGNOSIS: Iron deficiency anemia. PROCEDURE: After informed consent was obtained, the patient was placed in the left lateral decubitus position and anesthesia was administered per the Anesthesia Department. Forward-viewing endoscope w as inserted into the esophagus under direct visualization with ease and passed to the second portion of the duodenum with ease. Second portion of the duodenum and duodenal bulb were normal. The pyloru s, antrum, body, fundus, and cardia were normal. The esophagus was normal throughout. Random biopsi es were taken from the second portion of the duodenum. ASSESSMENT: Normal esophagogastroduodenoscopy. RECOMMENDATIONS: 1. Await histopathology. 2. Proceed with colonoscopy. PROCEDURE: After informed consent was obtained, the patient was placed in the left lateral decubitus position. Anesthesia administered per the Anesthesia Department. Forward-viewing endoscope was ins erted into the rectum after perianal inspection and rectal exam were normal. It was passed to the ce cum with ease. The cecum, ileocecal valve, and appendiceal orifice were normal. The prep was excell ent. The ascending transverse, descending sigmoid, and rectum were normal except for 2 small polyps in the transverse colon; 1 was sessile and 1 was pedunculated. These were both small. Both removed with hot snare electrocautery. The remainder of the colon was normal. Retroflexion in the rectum wa s normal. ASSESSMENT: Two small transverse colon polyps - status post polypectomy. RECOMMENDATIONS: 1. Await histopathology. 2. Resume iron. 3. Stable for discharge from GI standpoint.
--- NOTE | 2017-07-21 14:53 | PDOC.PN ---
- Subjective Encounter Start Date: 07/21/17 Encounter Start Time: 14:51 Subjective: feels well. awaiting to go to Endoscopy when seen -: no new complaints - Objective Resuscitation Status: Resuscitation Status FULL:Full Resuscitation MAR Reviewed: Yes Vital Signs & Weight: Vital Signs (12 hours) Temp Pulse Resp BP BP Pulse Ox 07/21/17 12:00 97.9 F 70 14 132/78 97 07/21/17 08:56 70 07/21/17 08:00 98.5 F 70 14 99 07/21/17 07:56 98.5 F 70 14 146/84 H 99 07/21/17 04:00 98.3 F 99 16 158/80 H 95 Weight Weight 226 lb 1.697 oz I&O: 07/20/17 07/21/17 07/22/17 06:59 06:59 06:59 Intake Total 800 2700 1250 Output Total 2250 Balance -1450 2700 1250 Result Diagrams: 07/21/17 03:43 07/21/17 03:43 Additional Labs: Accuchecks 07/21/17 07/21/17 07/20/17 10:38 05:26 20:28 POC Glucose 161 H 81 139 H 07/20/17 16:00 POC Glucose 95 Microbiology 07/20/17 18:20 Stool Stool Occult Blood ([facility]) - Final 07/20/17 18:20 Stool Stool Occult Blood ([facility]TE) - Final 07/20/17 18:20 Stool Stool Lactoferrin - Final 07/20/17 18:20 Stool Rapid Parasite Screen - Final 07/20/17 18:20 Stool Campylobacter Antigen Assay - Final 07/20/17 18:20 Stool Shiga Toxin Test - Final 07/20/17 18:20 Stool C. difficile GDH Antigen & Toxins - Final 07/20/17 18:20 Stool Stool Culture - Preliminary 07/16/17 19:49 Venous blood - Right Arm Blood Culture - Preliminary NO GROWTH AT 48 HOURS 07/16/17 19:49 Venous blood - Left Arm Blood Culture - Preliminary NO GROWTH AT 48 HOURS Laboratory Tests 07/18/17 07/18/17 07/19/17 05:22 05:22 04:47 IgA Total 120.00 Tiss Transglutamin IgA Less than 2 H. pylori IgG Antibody 0.13 Phys Exam - Physical Examination Constitutional: NAD HEENT: PERRLA, moist MMs, sclera anicteric, oral pharynx no lesions Neck: no nodes, no JVD, supple, full ROM Respiratory: no wheezing, no rales, no rhonchi, clear to auscultation bilateral Cardiovascular: RRR, no significant murmur Gastrointestinal: soft, non-tender, no distention, positive bowel sounds Musculoskeletal: no edema, pulses present Neurological: non-focal, normal sensation, moves all 4 limbs Psychiatric: normal affect, A&O x 3 Skin: no rash Dx/Plan (1) Fluid overload Code(s): E87.70 - FLUID OVERLOAD, UNSPECIFIED Status: Acute Qualifiers: Hypervolemia type: other Qualified Code(s): E87.79 - Other fluid overload Comment: noel flash pulmonary edema d/t uncontrolled HTN.ECHO without any significant dysfunction (2) ILDEFONSO (acute kidney injury) Code(s): N17.9 - ACUTE KIDNEY FAILURE, UNSPECIFIED Status: Acute Comment: Improving. nephrology following. Noel Diabetic nephropathy (3) Demand ischemia of myocardium Code(s): I24.8 - OTHER FORMS OF ACUTE ISCHEMIC HEART DISEASE Status: Acute Comment: Noel d/t severe anemia w PNA (4) Iron deficiency anemia Code(s): D50.9 - IRON DEFICIENCY ANEMIA, UNSPECIFIED Status: Acute Qualifiers: Iron deficiency anemia type: chronic blood loss Qualified Code(s): D50.0 - Iron deficiency anemia secondary to blood loss (chronic) Comment: EGD /colonoscopy ? due to heavy menstrual Bleeding.S/P 2 unit PRBC and IV iron (5) PNA (pneumonia) Code(s): J18.9 - PNEUMONIA, UNSPECIFIED ORGANISM Status: Acute Qualifiers: Pneumonia type: due to unspecified organism Laterality: right Lung location: middle lobe of lung Qualified Code(s): J18.1 - Lobar pneumonia, unspecified organism (6) DM type 2 (diabetes mellitus, type 2) Status: Chronic Qualifiers: Diabetes mellitus complication status: with ophthalmic complications Diabetes mellitus complication detail: with other ophthalmic complication Diabetes mellitus intermodal dispatcher insulin use: without intermodal dispatcher use Qualified Code( s): E11.39 - Type 2 diabetes mellitus with other diabetic ophthalmic complication (7) Diabetic neuropathy Code(s): E11.40 - TYPE 2 DIABETES MELLITUS WITH DIABETIC NEUROPATHY, UNSP Status: Acute (8) CVA (cerebral vascular accident) Code(s): I63.9 - CEREBRAL INFARCTION, UNSPECIFIED Status: Chronic Qualifiers: CVA mechanism: unspecified Qualified Code(s): I63.9 - Cerebral infarction, unspecified Comment: no residual paralysis (9) Chronic kidney disease (CKD) Code(s): N18.9 - CHRONIC KIDNEY DISEASE, UNSPECIFIED Status: Chronic Qualifiers: Chronic kidney disease stage: stage 2 (mild) Qualified Code(s): N18.2 - Chronic kidney disease, stage 2 (mild) (10) Hyperlipidemia Code(s): E78.5 - HYPERLIPIDEMIA, UNSPECIFIED Status: Chronic Qualifiers: Hyperlipidemia type: unspecified Qualified Code(s): E78.5 - Hyperlipidemia , unspecified (11) Hypertension Code(s): I10 - ESSENTIAL (PRIMARY) HYPERTENSION Status: Chronic Qualifiers: Hypertension type: essential hypertension Qualified Code(s): I10 - Essential (primary) hypertension (12) Obesity Code(s): E66.9 - OBESITY, UNSPECIFIED Status: Chronic Qualifiers: Obesity classification: adult class 2 (BMI 35 - 39.9) (13) Acute exacerbation of CHF (congestive heart failure) Code(s): I50.9 - HEART FAILURE, UNSPECIFIED Status: Suspected Qualifiers: Congestive heart failure type: unspecified congestive heart failure type Qualified Code(s): I50.9 - Heart failure, unspecified Comment: Improved - Plan DVT proph w/SCDs EGD /colonoscopy has reported and is WNL.will DC home.pt wants to go too -: cont FeSO4.cont cardio-prudent meds. -: OP f/u w PCP,cardiology,nephrology -: all Qs answered. * . Review of Systems - Review of Systems Constitutional: negative: fever, chills, sweats, weakness, malaise, other Respiratory: negative: Cough, Dry, Shortness of Breath, Hemoptysis, SOB with Excertion, Pleuritic Pain, Sputum, Wheezing Cardiovascular: negative: chest pain, palpitations, orthopnea, paroxysmal nocturnal dyspnea, edema, light headedness, other Gastrointestinal: negative: Nausea, Vomiting, Abdominal Pain, Diarrhea, Constipation, Melena, Hematochezia, Other Genitourinary: negative: Dysuria, Frequency, Incontinence, Hematuria, Retention , Other Musculoskeletal: negative: Neck Pain, Shoulder Pain, Arm Pain, Back Pain, Hand Pain, Leg Pain, Foot Pain, Other Neurological: negative: Weakness, Numbness, Incoordination, Change in Speech, Confusion, Seizures, Other - Medications/Allergies Allergies/Adverse Reactions: Allergies Allergy/AdvReac Type Severity Reaction Status Date / Time peanut Allergy Intermediate Emesis Verified 07/16/17 22:46 Medications: Current Medications Acetaminophen (Tylenol) 650 mg PO Q4H PRN PRN Reason: Headache/Fever or Pain Last Admin: 07/21/17 00:12 Dose: 650 mg Alprazolam (Xanax) 1 mg PO Q6H PRN PRN Reason: Anxiety Last Admin: 07/17/17 16:34 Dose: 1 mg Amlodipine Besylate (Norvasc) 10 mg PO DAILY [facility] Last Admin: 07/21/17 08:56 Dose: 10 mg Atorvastatin Calcium (Lipitor) 40 mg PO HS [facility] Last Admin: 07/20/17 20:32 Dose: 40 mg Bisacodyl (Dulcolax) 10 mg PO DAILYPRN PRN PRN Reason: Constipation Carvedilol (Coreg) 25 mg PO BID [facility] Last Admin: 07/21/17 08:55 Dose: 25 mg Clonidine (Catapres) 0.1 mg PO Q4H PRN PRN Reason: SBP > 180 Last Admin: 07/20/17 00:37 Dose: 0.1 mg Clopidogrel Bisulfate (Plavix) 75 mg PO DAILY [facility] Last Admin: 07/21/17 08:55 Dose: 75 mg Dextrose/Water (Dextrose 50%) 25 gm SLOW IVP PRN PRN PRN Reason: Hypoglycemia Docusate Sodium (Colace) 100 mg PO BIDPRN PRN PRN Reason: Constipation Enoxaparin Sodium (Lovenox) 30 mg SC 0900 [facility] Last Admin: 07/21/17 08:55 Dose: 30 mg Ferrous Sulfate ([facility]osol) [facility] Fluoxetine HCl (Prozac) 20 mg PO DAILY [facility] Last Admin: 07/21/17 08:55 Dose: 20 mg Glucagon (Glucagon) 1 mg IM PRN PRN PRN Reason: Hypoglycemia Guaifenesin/Dextromethorphan (Robitussin Dm) 15 ml PO Q4H PRN PRN Reason: Cough Hydralazine HCl (Apresoline) 10 mg SLOW IVP Q4H PRN PRN Reason: SBP>170 Last Admin: 07/19/17 11:42 Dose: 10 mg Dextrose/Water (D5w) 1,000 mls @ 0 mls/hr IV .Q0M PRN; As Directed PRN Reason: Hypoglycemia Insulin Detemir 20 units/ (Miscellaneous Medication) 0.2 mls @ 0 mls/hr SC BID [facility] Last Admin: 07/21/17 09:40 Dose: Not Given Levofloxacin 500 mg/ Device 100 mls @ 100 mls/hr IVPB Q24HR@0900 [facility] Last Admin: 07/21/17 08:57 Dose: 100 mls Sodium Chloride (Normal Saline 0.9%) 1,000 mls @ 100 mls/hr IV .Q10H [facility] Last Admin: 07/21/17 02:20 Dose: 1,000 mls Insulin Human Lispro (Humalog) 0 units SC .MODERATE SLIDING SC PRN PRN Reason: Moderate Correctional Scale Last Admin: 07/20/17 13:16 Dose: 2 unit Insulin Human Lispro (Humalog) 0 units SC .BEDTIME SLIDING SC PRN PRN Reason: Bedtime Correctional Scale Isosorbide Mononitrate (Imdur Er) 30 mg PO DAILY [facility] Last Admin: 07/21/17 08:55 Dose: 30 mg Levothyroxine Sodium (Synthroid) 150 mcg PO 0600 [facility] Last Admin: 07/21/17 05:06 Dose: 150 mcg Ondansetron HCl (Zofran) 4 mg IVP Q6H PRN PRN Reason: Nausea/Vomiting Last Admin: 07/21/17 08:24 Dose: 4 mg Ondansetron HCl (Pacu-Zofran) 4 mg IVP ONE PRN PRN Reason: Nausea/Vomiting Stop: 07/21/17 16:59 Pantoprazole Sodium (Protonix) 40 mg PO DAILY [facility] Last Admin: 07/21/17 08:56 Dose: 40 mg Promethazine HCl (Pacu-Phenergan) 6.25 mg SLOW IVP ONE PRN PRN Reason: Nausea/Vomiting Stop: 07/21/17 16:59 Promethazine HCl (Pacu-Phenergan) 6.25 mg IM ONE PRN PRN Reason: Nausea/Vomiting Stop: 07/21/17 16:59 Senna (Senokot) 1 tab PO HSPRN PRN PRN Reason: Constipation
[2017-07-21] MEDS ORDERED: Lidocaine 1% PF 5 ML VIAL ONE (15:35)
[2017-07-21] MEDS ORDERED: Propofol 200 MG/20 ML VIAL ONE (15:35)
[2017-07-21 15:58] VITALS: BP 145/94; TEMP 98.7
[2017-07-21] MEDS ORDERED: Ferrous Sulfate 325 MG TAB PO SCH (17:00)
[2017-07-21] MEDS ORDERED: Epoetin (ESRD) 20,000 UNITS/ML SC SCH (17:00)
--- NOTE | 2017-07-21 17:21 | PRG ---
DATE OF SERVICE: 07/21/2017 SUBJECTIVE: The patient was seen and examined. Noted with the following vital signs. OBJECTIVE: VITAL SIGNS: Afebrile with temperature 98.7, pulse 74, respiratory rate of 15, O2 sat of 94% with a blood pressure 145/94. HEENT: Unremarkable. CARDIOVASCULAR SYSTEM: First and second heart sounds were heard. RESPIRATORY SYSTEM: Clear to auscultation. DIGESTIVE SYSTEM: Revealed a benign abdomen with positive bowel sounds. EXTREMITIES: No peripheral edema. SKIN: No new gross rash. LYMPHATICS: No peripheral lymphadenopathy. LABORATORY INVESTIGATIONS: Showed hemoglobin of 8.3. Chemistry showed a creatinine of 3.36 with BUN of 30. IMPRESSION: 1. Advanced chronic kidney disease, stage 4/5. 2. Anemia of chronic kidney disease with iron deficiency. PLAN: 1. Continue with iron infusion. 2. We will consider erythropoiesis stimulating agent. 3. Further management will be dependent on the clinical course.
--- NOTE | 2017-07-22 00:09 | DIS ---
DATE OF ADMISSION: 07/16/2017 DATE OF DISCHARGE: 07/21/2017 CONDITION AT THE TIME OF DISCHARGE: Stable and improved. DISCHARGE DIAGNOSES: 1. Uncontrolled hypertension. 2. Blood loss anemia likely uterine bleeding. 3. Iron deficiency anemia secondary to #1. 4. Fluid overload without any significant cardiac dysfunction likely flash pulmonary edema from unco ntrolled hypertension. 5. Acute on chronic kidney disease. 6. Chronic kidney disease, new diagnosis likely diabetic and hypertensive nephropathy. 7. Demand ischemia of myocardium. 8. Pneumonia. 9. Hypertension. 10. Dyslipidemia. 11. Obesity. PRIMARY CARE PHYSICIAN: [facility]. DISCHARGE MEDICATIONS: As follows: Multivitamin daily, Synthroid 175 mcg daily, fluoxetine 60 mg da mariel, Plavix 75 mg daily, Lipitor 40 mg daily, glimepiride 4 mg daily. Please note that this dose has been increased from 2 mg daily. Clonidine 0.1 mg every 4 hours as needed for systolic blood pressur e more than 180, Florastor 250 mg daily, levofloxacin 500 mg daily for 5 more days, Isosorbide mononi trate 30 mg daily, ferrous sulfate 325 mg p.o. b.i.d., Coreg 25 mg p.o. b.i.d. and amlodipine 10 mg d aily. Please note that the patient has been taken off of her metformin. CONSULTATIONS IN-HOUSE: Include; 1. Cardiology, Dr. Tan. 2. Nephrology, Dr. Bocanegra. 3. Gastroenterology, Dr. Noah Tirado. PROCEDURES DONE IN THE HOSPITAL: Include; 1. Transthoracic echocardiogram on 07/16/2017, which showed preserved ejection fraction of 55% to 60 % and moderate concentric left ventricular hypertrophy and left atrial dilatation without any signifi cant valvular abnormalities. 2. Nuclear medicine cardiac stress test on 07/19/2017, which is negative for any perfusion defect. EF at 48%. 3. EGD and colonoscopy, both are unremarkable. Biopsy is pending. HISTORY OF PRESENTING ILLNESS: Ms. Munoz is a very pleasant 47-year-old female with past medical hist ory of diabetes, chronic kidney disease, hypertension, dyslipidemia, previous CVA with right-sided pa raesthesias, who presented to the emergency room with complaining of exertional chest tightness and s hortness of breath. Upon presentation, she was in no acute distress. She did have evidence of chest x-ray, which showed mild pulmonary vascular congestion. Her BNP is elevated to 1173. She was admit rich with a presumptive diagnosis of acute volume overload. Her creatinine was also elevated to 3 wit h a BUN of 37. She was started on diuretics and Nephrology and Cardiology was consulted. A 2-D echo cardiogram was ordered. Please see admission history and physical for further details. HOSPITAL COURSE: Nephrology, Dr. Bocanegra saw the patient and agreed with the diuretics, which wer e eventually tapered and stopped when the patient became euvolemic. Her renal function is stabilized . This is likely thought to be secondary to diabetic and hypertensive nephropathy. The patient was also seen by Cardiology with regards to her new diagnosis of congestive heart failure , underwent a transthoracic echocardiogram. Her EF was normal. She had troponin levels drawn, which were elevated to 0.317 and slowly trended down to 0.160. This was thought to be secondary to demand ischemia due to uncontrolled hypertension. Nevertheless, she went to the nuclear medicine stress te st, which did not show any active ischemia or infarction. Dr. Tan recommended continuation of medical management. The patient is already on Plavix with her history of cerebrovascular accident. She was continued on her beta bisi as well. She was continued on statin. Gastroenterology was also involved in the care because the patient gave a history of significant diar shruti and also for the workup of iron deficiency anemia. The patient did give history of excessive me nstrual bleed prior to presentation. Her hemoglobin on presentation was 7.2. She received 2 units o f packed RBCs and multiple days of IV iron by Nephrology. Dr. Tirado saw the patient and sent her lab s for tissue transglutaminase antibody and IgGa total antibody as well as H. pylori antibodies. Thes e tests were negative. Her stool studies were obtained and those were unremarkable including the C. diff. Stool occult blood testing was also negative. For completion of the workup, she underwent an EGD and colonoscopy earlier today, which is also unremarkable. She has been cleared for discharge fr om GI perspective and has been started on ferrous sulfate. In summary, the patient's renal function has stabilized. She has been diuresed for flash pulmonary e serene. She had demand ischemia from uncontrolled hypertension for which she was started on higher dos e of amlodipine, continued on Coreg and Imdur was added and her blood pressure has been better since then. She was seen and examined prior to discharge. Please see hospitalist progress note from today's date for further details including [id number] interaction. Discharge plan was discussed with the jacquleine natividad who verbalized understanding. She was encouraged to follow up with her primary care physician and Nephrology for long-term followup and she is agreeable. Total time spent in the discharge of this patient 36 minutes.
== END 2017-07-21 18:10 | disposition home or self-care (01) | DRG 189 ==
LOC: ERS 13:20 → 2NO 19:02 → SURG A 07-20 19:23
PROVIDERS: ADMIT Internal Medicine; ATTEND Internal Medicine
PROC: 30233N1 Transfusion of Nonautologous Red Blood Cells into Peripheral Vein, Percutaneous Approach (ICD-10-PCS; 2017-07-17)
PROC: 0DB98ZX Excision of Duodenum, Via Natural or Artificial Opening Endoscopic, Diagnostic (ICD-10-PCS; principal; 2017-07-21)
PROC: 0DBL8ZX Excision of Transverse Colon, Via Natural or Artificial Opening Endoscopic, Diagnostic (ICD-10-PCS; 2017-07-21)
DX: J81.0 Acute pulmonary edema (principal); J18.9 Pneumonia, unspecified organism; E11.21 Type 2 diabetes mellitus with diabetic nephropathy; N18.4 Chronic kidney disease, stage 4 (severe); N17.9 Acute kidney failure, unspecified; I24.8 Other forms of acute ischemic heart disease; E11.319 Type 2 diabetes mellitus with unspecified diabetic retinopathy without macular edema; E11.42 Type 2 diabetes mellitus with diabetic polyneuropathy; E87.2 Acidosis; E11.22 Type 2 diabetes mellitus with diabetic chronic kidney disease; I12.9 Hypertensive chronic kidney disease with stage 1 through stage 4 chronic kidney disease, or unspecified chronic kidney disease; E78.5 Hyperlipidemia, unspecified; E66.9 Obesity, unspecified; D63.1 Anemia in chronic kidney disease; D50.0 Iron deficiency anemia secondary to blood loss (chronic); E03.9 Hypothyroidism, unspecified; H54.7 Unspecified visual loss; N93.9 Abnormal uterine and vaginal bleeding, unspecified; Z68.34 Body mass index [BMI] 34.0-34.9, adult; Z86.73 Personal history of transient ischemic attack (TIA), and cerebral infarction without residual deficits; Z88.6 Allergy status to analgesic agent; Z79.02 Long term (current) use of antithrombotics/antiplatelets; Z79.84 Long term (current) use of oral hypoglycemic drugs; Z79.899 Other long term (current) drug therapy
CPT/HCPCS: 36415; 36416; 36430; 71046; 71250; 78452; 80048; 80053; 80061; 81003; 81015; 82274; 82553; 82607; 82728; 82746; 83036; 83516; 83540; 83550; 83630; 83880; 84484; 84550; 84703; 85014; 85018; 85025; 85379; 85610; 85730; 86677; 86850; 86900; 86901; 87040; 87045; 87046; 87324; 87328; 87329; 87449; 87899; 88305; 93005; 93017; 93306; 93798; 96365; 96372; 96375; A9500; J0153; J0360; J0456; J0696; J1650; J1756; J1815; J1940; J1956; J2001; J2405; J2704; J2916; J7050; P9016; Q4081

== ENCOUNTER 2018-04-16 20:16 | Inpatient (IN) | payer MEDICARE ==
[2018-04-16 21:05] LABS: Hemoglobin 10.2 g/dL (12.0-16.0); Mean Corpuscular HGB CONC 33.4 g/dL (32.0-36.0); Mean Corpuscular Hemoglobin 28.5 pg (27.0-31.0); Mean Corpuscular Volume 85.4 fL (78.0-98.0); Platelet Count 156 thou/uL (130-400); RBC Distribution Width 11.3 % (11.5-14.5); Red Blood Cell (RBC) Count 3.59 mill/uL (4.20-5.40); White Blood Cell (WBC) Count 16.4 thou/uL (4.8-10.8)
[2018-04-16 21:22] LABS: Band 17 % (5-11); Hypochromia SLIGHT = 6-15 cells (100X) (0-5/hpf); Lymphocytes 4 % (21-51); MDiff Complete? YES; Monocytes 1 % (0-10); Neutrophil 78 % (42-75); PLT Morphology Comment Appears Adequate
--- NOTE | 2018-04-16 21:27 | RAD ---
AP VIEW CHEST: 04/16/18 HISTORY: Dyspnea. AP view chest is obtained on 04/16/18. Comparison made to a previous exam from 08/03/13. AP view chest demonstrates mild cardiomegaly. There is suboptimal inspiratory effort. No evidence of effusions, pneumonia or pneumothorax seen. Elevation of the right hemidiaphragm seen. IMPRESSION: Elevated right hemidiaphragm with mild cardiomegaly, otherwise unremarkable AP view chest. POS: [facility]
[2018-04-16 21:30] LABS: ALT (SGPT) 34 U/L (8-55); AST (SGOT) 42 U/L (5-34); Albumin 3.1 g/dL (3.5-5.0); Alkaline Phosphatase 77 U/L (40-150); Anion Gap 17 mmol/L (10-20); BUN (Urea Nitrogen) 57 mg/dL (7.0-18.7); Bilirubin, Total 0.3 mg/dL (0.2-1.2); Calc. Creatinine Clearance 0 mL/min (70-130); Calcium 8.5 mg/dL (7.8-10.44); Carbon Dioxide 17 mmol/L (22-29); Chloride 90 mmol/L (98-107); Estimated GFR-MDRD 10; Globulin 3.6 g/dL (2.4-3.5); Glucose 413 mg/dL (70-105); Potassium 3.8 mmol/L (3.5-5.1); Protein, Total 6.7 g/dL (6.0-8.3); Sodium 120 mmol/L (136-145)
[2018-04-16 21:32] LABS: CKMB 1.8 ng/mL (0-6.6); Troponin I 0.044 ng/mL (< 0.028)
--- NOTE | 2018-04-16 21:42 | CT ---
CT BRAIN 04/16/18 HISTORY: 48-year-old presents with history of trauma. Noncontrast enhanced CT images of the brain obtained. Comparison made to a previous exam from 11/26/08. Noncontrast enhanced CT images of the brain demonstrates the calvarium to be unremarkable. No evidenc e of calvarial fractures seen. The brain is unremarkable. No evidence of intracranial masses, hemorrhages, or strokes seen. No evidence of subarachnoid or subdural blood seen. IMPRESSION: Unremarkable CT brain. POS: [facility]
[2018-04-16] MEDS ORDERED: Acetaminophen 500 MG TAB ONE (21:55)
[2018-04-16 22:29] LABS: Bilirubin Negative (Negative); Blood, Urine Large (Negative); Clarity CLOUDY (Clear); Glucose, Urine (Dipstick) 500 mg/dL (Negative); Leukocyte Negative (Negative); Nitrite Negative (Negative); Protein, Urine (Dipstick) 300 mg/dL (Neg-Trace); Specific Gravity, Urine 1.016 (1.002-1.036); Urobilinogen 0.2 mg/dL (0.2-1.0)
[2018-04-16 22:34] LABS: Bacteria/HPF None Seen HPF (None Seen); Hyaline Casts/LPF 0-3 HYALINE CAST LPF (0-3 Hyaline); Pathc Cast-AUWi Flag 0.29 (0-2.49); Squamous Epithelial 0-3 HPF (0-3); Yeast-AUWi Flag 120.2 (0-25.0)
[2018-04-16 22:47] LABS: RBC/HPF 0-3 HPF (0-3)
[2018-04-16 22:48] LABS: Renal Epithelial 0-3 HPF (0-3)
[2018-04-16] MEDS ORDERED: Insulin Regular 300 UNITS/3 ML VIAL ONE (23:56)
[2018-04-17 00:49] LABS: Troponin I 0.057 ng/mL (< 0.028)
[2018-04-17 01:14] VITALS: BMI 35.9
[2018-04-17] MEDS ORDERED: Ondansetron ODT 4 MG TAB PO PRN (01:40)
[2018-04-17] MEDS ORDERED: Ondansetron PF 4 MG/2 ML Vial IVP PRN (01:40)
[2018-04-17] MEDS ORDERED: Senokot S 8.6-50 MG TAB PO PRN (01:40)
[2018-04-17] MEDS ORDERED: Bisacodyl 5 MG TAB PO PRN (01:40)
[2018-04-17] MEDS ORDERED: Dextrose 5% in Water 1,000 ML IV PRN (01:42)
[2018-04-17] MEDS ORDERED: HumaLOG 300 UNITS/3 ML VIAL SC PRN (01:42)
[2018-04-17] MEDS ORDERED: Dextrose 50% Abboject 50 ML SYRINGE SLOW IVP PRN (01:42)
[2018-04-17 02:05] LABS: #Lymphocytes 1.2 thou/uL (1.20-3.40); #Monocytes 0.5 thou/uL (0.11-0.59); #Neutrophils 10.7 thou/uL (1.40-6.50); %Basophils 0.3 % (0.0-1.0); %Eosinophils 0.1 % (0.0-10.0); %Lymphocytes 9.4 % (21.0-51.0); %Monocytes 4.1 % (0.0-10.0); %Neutrophils 86.3 % (42.0-75.0); Hemoglobin 9.9 g/dL (12.0-16.0); Mean Corpuscular HGB CONC 34.8 g/dL (32.0-36.0); Mean Corpuscular Hemoglobin 29.3 pg (27.0-31.0); Mean Corpuscular Volume 84.2 fL (78.0-98.0); Mean Platelet Volume 8.5 fL (7.4-10.4); Platelet Count 140 thou/uL (130-400); RBC Distribution Width 11.3 % (11.5-14.5); Red Blood Cell (RBC) Count 3.37 mill/uL (4.20-5.40); White Blood Cell (WBC) Count 12.4 thou/uL (4.8-10.8)
[2018-04-17 02:24] LABS: Anion Gap 12 mmol/L (10-20); BUN (Urea Nitrogen) 56 mg/dL (7.0-18.7); Calc. Creatinine Clearance 26 mL/min (70-130); Calcium 8.4 mg/dL (7.8-10.44); Carbon Dioxide 19 mmol/L (22-29); Chloride 97 mmol/L (98-107); Estimated GFR-MDRD 10; Glucose 177 mg/dL (70-105); Potassium 3.1 mmol/L (3.5-5.1); Sodium 125 mmol/L (136-145)
[2018-04-17 02:43] LABS: ALT (SGPT) 31 U/L (8-55); AST (SGOT) 39 U/L (5-34); Albumin 2.9 g/dL (3.5-5.0); Alkaline Phosphatase 69 U/L (40-150); Anion Gap 15 mmol/L (10-20); BUN (Urea Nitrogen) 56 mg/dL (7.0-18.7); Bilirubin, Total 0.2 mg/dL (0.2-1.2); Calc. Creatinine Clearance 25 mL/min (70-130); Calcium 8.4 mg/dL (7.8-10.44); Carbon Dioxide 15 mmol/L (22-29); Chloride 98 mmol/L (98-107); Estimated GFR-MDRD 10; Globulin 3.2 g/dL (2.4-3.5); Glucose 176 mg/dL (70-105); Potassium 3.2 mmol/L (3.5-5.1); Protein, Total 6.1 g/dL (6.0-8.3); Sodium 125 mmol/L (136-145)
[2018-04-17 02:46] LABS: Troponin I 0.062 ng/mL (< 0.028)
[2018-04-17 05:42] LABS: #Lymphocytes 0.8 thou/uL (1.20-3.40); #Monocytes 0.4 thou/uL (0.11-0.59); #Neutrophils 8.9 thou/uL (1.40-6.50); %Basophils 0.1 % (0.0-1.0); %Eosinophils 0.2 % (0.0-10.0); %Lymphocytes 7.6 % (21.0-51.0); %Monocytes 4.2 % (0.0-10.0); Hemoglobin 10.3 g/dL (12.0-16.0); Mean Corpuscular HGB CONC 34.2 g/dL (32.0-36.0); Mean Corpuscular Hemoglobin 28.9 pg (27.0-31.0); Mean Corpuscular Volume 84.5 fL (78.0-98.0); Mean Platelet Volume 8.8 fL (7.4-10.4); Platelet Count 139 thou/uL (130-400); RBC Distribution Width 11.3 % (11.5-14.5); Red Blood Cell (RBC) Count 3.55 mill/uL (4.20-5.40); White Blood Cell (WBC) Count 10.1 thou/uL (4.8-10.8)
[2018-04-17] MEDS: Levothyroxine 175 MCG TAB PO SCH (05:43)
[2018-04-17 05:50] LABS: Hemoglobin A1c 6.1 % (4.0-6.0)
[2018-04-17 08:21] LABS: Anion Gap 14 mmol/L (10-20); BUN (Urea Nitrogen) 58 mg/dL (7.0-18.7); Calc. Creatinine Clearance 25 mL/min (70-130); Calcium 8.6 mg/dL (7.8-10.44); Carbon Dioxide 19 mmol/L (22-29); Chloride 99 mmol/L (98-107); Estimated GFR-MDRD 10; Glucose 166 mg/dL (70-105); Potassium 3.4 mmol/L (3.5-5.1); Sodium 129 mmol/L (136-145)
--- NOTE | 2018-04-17 09:21 | ULT ---
RENAL ULTRASOUND: HISTORY: Chronic renal disease. FINDINGS: Real-time imaging of the right and left kidneys was performed. The right kidney measures 10.6 cm and the left kidney 11.6 cm in size. The kidneys appear to be of increased echogenicity. The bladder r egion appears unremarkable. IMPRESSION: No signs of cyst, mass, or obstruction. The kidneys are of mild increased echogenicity suggesting so me underlying medial renal parenchymal disease. POS: [facility]
--- NOTE | 2018-04-17 09:33 | PDOC.PN ---
- Subjective Encounter Start Date: 04/17/18 Encounter Start Time: 09:00 Subjective: c/o gen weakness, cough and sob -: no diarrhea or chest pain - Objective Resuscitation Status: Resuscitation Status FULL:Full Resuscitation MAR Reviewed: Yes Vital Signs & Weight: Vital Signs (12 hours) Temp Pulse Resp BP BP BP BP 04/17/18 08:03 99.7 F H 83 20 118/57 L 103/56 L 140/67 04/17/18 03:05 99.9 F H 76 21 H 146/63 H 04/17/18 01:05 CONSULTING SOFTWARE ENGINEER 98.4 F 70 18 147/68 H Pulse Ox 04/17/18 08:03 94 L 04/17/18 03:05 97 04/17/18 01:05 CONSULTING SOFTWARE ENGINEER 99 Weight Weight 236 lb 6.4 oz Result Diagrams: 04/17/18 05:31 04/17/18 05:31 Additional Labs: Accuchecks 04/17/18 04/16/18 05:30 23:54 POC Glucose 175 H 324 H Phys Exam - Physical Examination HEENT: PERRLA, moist MMs Neck: no JVD, supple Respiratory: no wheezing, no rales Cardiovascular: RRR, no significant murmur Gastrointestinal: soft, non-tender, positive bowel sounds Musculoskeletal: no edema, pulses present Neurological: non-focal, moves all 4 limbs Psychiatric: normal affect, A&O x 3 Dx/Plan (1) Hyponatremia Code(s): E87.1 - HYPO-OSMOLALITY AND HYPONATREMIA Status: Acute (2) Metabolic acidosis Code(s): E87.2 - ACIDOSIS Status: Acute (3) Hypokalemia Code(s): E87.6 - HYPOKALEMIA Status: Acute (4) Hypoalbuminemia Code(s): E88.09 - OTH DISORDERS OF PLASMA-PROTEIN METABOLISM, NEC Status: Chronic (5) Demand ischemia of myocardium Code(s): I24.8 - OTHER FORMS OF ACUTE ISCHEMIC HEART DISEASE Status: Chronic (6) Chronic anemia Code(s): D64.9 - ANEMIA, UNSPECIFIED Status: Chronic (7) ILDEFONSO (acute kidney injury) Code(s): N17.9 - ACUTE KIDNEY FAILURE, UNSPECIFIED Status: Acute (8) Diabetes mellitus type 2 in obese Code(s): E11.9 - TYPE 2 DIABETES MELLITUS WITHOUT COMPLICATIONS; E66.9 - OBESITY , UNSPECIFIED Status: Chronic (9) Chronic kidney disease (CKD) Code(s): N18.9 - CHRONIC KIDNEY DISEASE, UNSPECIFIED Status: Chronic Qualifiers: Chronic kidney disease stage: stage 5, not on chronic dialysis Qualified Code(s): N18.5 - Chronic kidney disease, stage 5 (10) DM type 2 (diabetes mellitus, type 2) Status: Chronic Qualifiers: Diabetes mellitus senior care insulin use: without senior care use Diabetes mellitus complication status: with neurologic complications Diabetes mellitus complication detail: with polyneuropathy Qualified Code(s): E11.42 - Type 2 diabetes mellitus with diabetic polyneuropathy (11) Hyperlipidemia Code(s): E78.5 - HYPERLIPIDEMIA, UNSPECIFIED Status: Chronic Qualifiers: Hyperlipidemia type: unspecified (12) Hypertension Code(s): I10 - ESSENTIAL (PRIMARY) HYPERTENSION Status: Chronic Qualifiers: Hypertension type: essential hypertension (13) Obesity Code(s): E66.9 - OBESITY, UNSPECIFIED Status: Chronic Qualifiers: Obesity classification: adult class 2 (BMI 35 - 39.9) - Plan pt expresses that she does not want to go on HD -: wants to be DNR -: will add levaquin based on renal function, 17% bands, fever, unclear source -: multiple electrolyte abnormalities, per nephr adv -: continue lipitor, plavix, coreg * . OOB to chair and amb as tolerated. 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 Review of Systems - Medications/Allergies Allergies/Adverse Reactions: Allergies Allergy/AdvReac Type Severity Reaction Status Date / Time peanut Allergy Intermediate Emesis Verified 04/17/18 01:24 CONSULTING SOFTWARE ENGINEER Medications: Current Medications Acetaminophen (Tylenol) 650 mg PO Q6H PRN PRN Reason: Headache/Fever or Pain Amlodipine Besylate (Norvasc) 5 mg PO DAILY [facility] Atorvastatin Calcium (Lipitor) 20 mg PO HS [facility] Bisacodyl (Dulcolax) 10 mg PO DAILYPRN PRN PRN Reason: Constipation Carvedilol (Coreg) 25 mg PO BID [facility] Clopidogrel Bisulfate (Plavix) 75 mg PO DAILY [facility] Dextrose/Water (Dextrose 50%) 25 gm SLOW IVP PRN PRN PRN Reason: Hypoglycemia Famotidine (Pepcid) 20 mg SLOW IVP QAM [facility] Fluoxetine HCl (Prozac) 20 mg PO DAILY [facility] Glucagon (Glucagon) 1 mg IM PRN PRN PRN Reason: Hypoglycemia Heparin Sodium (Porcine) (Heparin) 5,000 units SC TID [facility] Dextrose/Water (D5w) 1,000 mls @ 0 mls/hr IV .Q0M PRN PRN Reason: Hypoglycemia Insulin Human Lispro (Humalog) 0 units SC .MILD SLIDING SCALE PRN PRN Reason: Mild Correctional Scale Levothyroxine Sodium (Synthroid) 175 mcg PO 0600 [facility] Last Admin: 04/17/18 05:43 Dose: 175 mcg Ondansetron HCl (Zofran Odt) 4 mg PO Q6H PRN PRN Reason: Nausea/Vomiting Ondansetron HCl (Zofran) 4 mg IVP Q6H PRN PRN Reason: Nausea/Vomiting Senna/Docusate Sodium (Senokot S) 2 tab PO BID PRN PRN Reason: Constipation Sodium Bicarbonate (Bicarbonate, Sodium) 650 mg PO BID [facility]
[2018-04-17] MEDS: Sodium Bicarbonate Tab 325 MG TAB PO SCH ×2 (09:34→20:49)
[2018-04-17] MEDS: Carvedilol 25 MG TAB PO SCH ×2 (09:34→20:48)
[2018-04-17] MEDS: Amlodipine 10 MG TAB PO SCH (09:34)
[2018-04-17] MEDS: Clopidogrel Bisulfate 75 MG TAB PO SCH (09:35)
[2018-04-17] MEDS: Acetaminophen 325 MG TAB PO PRN (09:35)
[2018-04-17] MEDS: FLUoxetine HCl 20 MG CAP PO SCH (09:35)
[2018-04-17] MEDS: Heparin 5,000 UNITS/ML VIAL SC SCH ×3 (09:36→20:48)
[2018-04-17] MEDS: Famotidine/PF 20 mg/2ml Vial SLOW IVP SCH (09:36)
[2018-04-17] MEDS: Sodium Chloride 0.9% 1,000 ML IV SCH (12:55)
[2018-04-17] MEDS: Potassium Chloride 20 MEQ TAB PO SCH (14:11)
[2018-04-17 14:23] LABS: Anion Gap 12 mmol/L (10-20); BUN (Urea Nitrogen) 57 mg/dL (7.0-18.7); Calc. Creatinine Clearance 26 mL/min (70-130); Calcium 8.5 mg/dL (7.8-10.44); Carbon Dioxide 20 mmol/L (22-29); Chloride 100 mmol/L (98-107); Estimated GFR-MDRD 11; Glucose 147 mg/dL (70-105); Sodium 129 mmol/L (136-145)
[2018-04-17] MEDS: cefTRIAXone\\ROCEPHIN 1 GM in Sodium Chloride 0.9% 100 ML IVPB SCH (17:54)
[2018-04-17 20:18] LABS: Anion Gap 13 mmol/L (10-20); BUN (Urea Nitrogen) 57 mg/dL (7.0-18.7); Calc. Creatinine Clearance 26 mL/min (70-130); Calcium 8.2 mg/dL (7.8-10.44); Carbon Dioxide 19 mmol/L (22-29); Chloride 101 mmol/L (98-107); Estimated GFR-MDRD 11; Glucose 241 mg/dL (70-105); Potassium 3.5 mmol/L (3.5-5.1); Sodium 129 mmol/L (136-145)
[2018-04-17] MEDS: Atorvastatin Calcium 20 MG TAB PO SCH (20:48)
[2018-04-18] MEDS: Sodium Chloride 0.9% 1,000 ML IV SCH ×2 (00:13→09:32)
[2018-04-18] MEDS: Levothyroxine 175 MCG TAB PO SCH (05:12)
--- NOTE | 2018-04-18 08:23 | PDOC.EVN ---
Event Note - Event Note Event Note: h&p dictated [id number]
[2018-04-18] MEDS: Potassium Chloride 20 MEQ TAB PO SCH (09:31)
[2018-04-18] MEDS: Carvedilol 25 MG TAB PO SCH ×2 (09:31→20:37)
[2018-04-18] MEDS: Amlodipine 10 MG TAB PO SCH (09:31)
[2018-04-18] MEDS: Clopidogrel Bisulfate 75 MG TAB PO SCH (09:31)
[2018-04-18] MEDS: FLUoxetine HCl 20 MG CAP PO SCH (09:31)
[2018-04-18] MEDS: Famotidine/PF 20 mg/2ml Vial SLOW IVP SCH (09:31)
[2018-04-18] MEDS: Sodium Bicarbonate Tab 325 MG TAB PO SCH ×2 (09:32→20:37)
[2018-04-18] MEDS: Heparin 5,000 UNITS/ML VIAL SC SCH ×3 (09:32→20:37)
[2018-04-18] MEDS: Acetaminophen 325 MG TAB PO PRN ×2 (09:40→20:37)
--- NOTE | 2018-04-18 10:26 | CON ---
DATE OF CONSULTATION: 04/17/2018 CONSULTING PHYSICIAN: Tristan Moran M.D. REASON FOR CONSULTATION: Acute kidney injury on chronic kidney disease. REASON FOR ADMISSION: Dizziness, vomiting, lethargy, nausea. HISTORY OF PRESENT ILLNESS: This is a 48-year-old female with a history of chronic kidney disease, h ypothyroidism, type 2 diabetes, hyperlipidemia, who came to the hospital with above complaints. Neph rology consulted. The patient does follow with Dr. Montemayor and seems like her baseline creatinine is ar ound 3.3-3.4 and found to be 4.5 and Nephrology is consulted. The patient is feeling dizzy. When I saw her, she just had physical therapy and when she stood up, she had dizziness and felt better by ly ing down and blood pressure did drop to 103/56 standing from 140/67 supine. No chest pain or palpita tion reported. No fever or chills. No skin rash. PAST MEDICAL HISTORY: Positive for chronic kidney disease, type 2 diabetes, hypertension, hypothyroi dism, depression, anxiety, metabolic acidosis. PAST SURGICAL HISTORY: , cholecystectomy. HOME MEDICATIONS: Glimepiride, fluoxetine, Levothyroxine, carvedilol, atorvastatin, sodium bicarbona te, amlodipine, clopidigrel. ALLERGIES: No known drug allergies. SOCIAL HISTORY: No smoking, alcohol or illicit drug abuse reported. FAMILY HISTORY: No history of any kidney disease. REVIEW OF SYSTEMS: The following complete review of systems was negative, unless otherwise mentioned in the HPI or below: Constitutional: Weight loss or gain, ability to conduct usual activities. Skin: Rash, itching. Eyes: Double vision, pain. ENT/Mouth: Nose bleeding, neck stiffness, pain, tenderness. Cardiovascular: Palpitations, dyspnea on exertion, orthopnea. Respiratory: Shortness of breath, wheezing, cough, hemoptysis, fever or night sweats. Gastrointestinal: Poor appetite, abdominal pain, heartburn, nausea, vomiting, constipation, or diarr hea. Genitourinary: Urgency, frequency, dysuria, nocturia. Musculoskeletal: Pain, swelling. Neurologic/Psychiatric: Anxiety, depression. Allergy/Immunologic: Skin rash, bleeding tendency. PHYSICAL EXAMINATION: GENERAL: This is an obese female in no apparent distress. Vital signs: Temperature , pulse 83, respiratory rate 20, blood pressure 118/57. HEENT: Atraumatic, normocephalic. Oral mucosa is moist. NECK: Supple. CARDIOVASCULAR: S1, S2 heard. Rate and rhythm regular. RESPIRATORY: Clear to auscultation. GASTROINTESTINAL: Abdomen is soft. MUSCULOSKELETAL: No tenderness, no edema. DERMATOLOGIC: No skin rash. NEUROLOGIC: Alert and awake and oriented x3. No focal neurologic deficits. Moving all the extremit ies. PSYCHIATRIC: Mood and affect normal. LABORATORY DATA: Hemoglobin is 10.3, potassium 3.4, sodium 129, BUN is 57, creatinine 4.5. ASSESSMENT AND PLAN: 1. Acute kidney injury on chronic kidney disease stage 4. No acute indication for dialysis. It see ms like patient is volume depleted. We will hydrate her. We will start her on NS at 100 mL per hour as tolerated. Closely monitor labs. 2. Hyponatremia, most likely from hypovolemia, we will hydrate her. 3. Hypokalemia, we will replace and monitor. 4. Metabolic acidosis, seems to be chronic, but we will start her on IV hydration. 5. Orthostasis. We will hydrate. 6. Anemia, most likely from chronic disease. 7. Edema, controlled. 8. Hypertension, currently normotensive and orthostasis. We will monitor. Plan is to have hydration, monitor renal function closely. We will monitor respiratory status. Citlali bey nephrotoxins. Thank you for the consult. We will follow.
--- NOTE | 2018-04-18 10:30 | HP ---
PRIMARY CARE PHYSICIAN: [facility]. CHIEF COMPLAINT: Weakness and falling at home. HISTORY OF PRESENT ILLNESS: This is a 48-year-old female with known history of chronic renal disease , hyperlipidemia, type 2 diabetes and diabetic retinopathy who initially presented with a chief compl aint of shortness of breath, nausea, headache, vomiting and feeling lethargic. The patient states her symptoms started approximately a week ago when she had acute onset of nausea w ith significant bouts of emesis. She denies having had any further episodes of emesis in the last 2- 3 days. Since then, however, patient has had decreased oral intake and has subsequently felt very le thargic accompanied by progressive shortness of breath, particularly with exertion. Alongside all of these symptoms, the patient has been having episodes of lightheadedness, dizziness, gait instability and headache. She was brought in today by family members after having lost her balance, fallen and hit her head. At the time of my evaluation, the patient has already been evaluated in the emergency department for her fall and her hitting of the head. She states that her headache is better, but she still feels "v marisela tired. " REVIEW OF SYSTEMS: As per HPI. Constitutional: The patient is unsure if she has had any weight los s or gain, but denies any overt fevers or chills throughout her last week. HEENT: Headache is as de scribed above which significantly improved. Patient denies any new vision changes. Of note, the karrie mcknight has very poor vision in both eyes, but she does not feel that it is grossly worse. Cardiovascul ar: No chest pain, chest pressure. Just shortness of breath with exertion. No left-sided arm numbn ess or tingling. Respiratory: No cough, congestion, recent upper respiratory infection that the karrie mcknight is aware of. Gastrointestinal: As described above. Throughout all of this, patient denies hav ing had any issues with constipation, or diarrhea. Genitourinary: Denies any dysuria, changes in ur inary color, frequency, quantity or odor. Musculoskeletal: Denies new myalgias or arthralgias, just a generalized feeling of fatigue. The remainder of the review of systems is otherwise negative. PAST MEDICAL HISTORY: Significant for, 1. Hypothyroidism. 2. CVA in 2016. 3. Chronic renal disease. 4. Type 2 diabetes with diabetic retinopathy. 5. Hyperlipidemia. 6. Hypertension. PAST SURGICAL HISTORY: 1. Status post detached retina times both eyes with an eye patch over the left eye. 2. Status post cholecystectomy. 3. Status post . HOME MEDICATIONS: Please see the EMR for full details. The patient's list currently appears to incl ude the following, fluoxetine 20 mg p.o. daily, clopidogrel 75 mg p.o. daily, glimepiride 1 mg p.o. d aily, levothyroxine 175 mcg p.o. daily, sodium bicarbonate 650 mg p.o. b.i.d., amlodipine 5 mg p.o. d aily, carvedilol 25 mg p.o. b.i.d., atorvastatin 20 mg p.o. at bedtime. ALLERGIES: Patient has allergies to PEANUTS. FAMILY HISTORY: The patient denies any known family history of renal disease specifically end-stage renal disease by any causes. SOCIAL HISTORY: Patient denies any alcohol, tobacco or illicit drug use. Currently endorses being F ULL CODE. PHYSICAL EXAMINATION: GENERAL: The patient is awake, alert, conversant, no acute distress, lying in the hospital bed. HEENT: Normocephalic, atraumatic. Patient currently declines an ocular examination. She is noted t o have a patch over her left eye. She has poor dentition. CARDIOVASCULAR: S1, S2. No murmurs, rubs or gallops. Pulses 2+ bilateral upper extremities. No pe su edema. RESPIRATORY: Reasonable air movement, no conversational dyspnea. No wheezes, rales or rhonchi. Yaron ssly clear to auscultation. ABDOMEN: Positive bowel sounds, soft, nontender to palpation. No CVA tenderness. MUSCULOSKELETAL: Moving all 4 extremities independently and able to self-repositioning in the bed wi thout difficulty or assistance. LABORATORY DATA AND IMAGING: WBC 16.4, hemoglobin 10.2, hematocrit 30.6, platelets 156. Sodium of 1 20, potassium 3.8, chloride 90, bicarbonate 17, BUN 57, creatinine 4.66, glucose 413, lactic acid 1.2 , calcium 8.5, total bilirubin 0.3, AST 42, ALT 34, alkaline phosphatase 77. Troponin 0.044, BNP dolores riuretic peptide 181.2, total protein 6.7, albumin 3.1. UA is significant for 300 proteins, 500 gluc ose, large amount of blood, and 4-6 wbc's. ASSESSMENT AND PLAN: This is a 48-year-old female who presents with generalized complaints of weakness, had sustained a fall. 1. Weakness, status post fall. The patient will need to work with physical therapy and occupational therapy. Considering the patient's preceding illness for approximately 1 week, I have concerned kristan t the patient has developed a degree of deconditioning while at home. Additionally, the patient is a lso presenting with hyponatremia and acute renal disease which are likely contributors to her current situation. I suspect that the above could be related to a component of volume depletion and dehydra tion from the episodes of emesis and has subsequently not been compensated on an outpatient basis. T he patient has received approximately 1.5 liters of IV fluid. We will continue with normal saline at 150 mL hour with close attention to the patient's renal function, electrolytes and urine output. 2. Acute kidney injury, on chronic renal disease. Please see the discussion above. We will check a fractional excretion of urine, renal ultrasound given her acute renal disease on chronic renal disea se. I appreciate Nephrology consultation. We will hold on any potentially nephrotoxic regimens. 3. Hyponatremia. Please see the discussion above and continue to closely monitor particularly in co njunction with the patient's neurologic status. 4. Hyperglycemia with setting of known type 2 diabetes. Variable clearance of insulin and other hyp oglycemic agents will continue with close Accu-Cheks with meals. Place the patient on a sliding scal e regimen as well. Check a hemoglobin A1c. 5. Elevated troponin of unclear significance in the setting of acute kidney injury. We will continu e to trend and closely monitor. The patient is currently hemodynamically stable. Suspect that this is an elevated troponin secondary to renal disease. 6. Hypothyroidism with a TSH of 0.31052. We will go ahead and check a free T4. Continue the patien t on her home levothyroxine. 7. Glucosuria with elevated protein and blood. Suspect that there is a component of chronic diabeti c nephropathy also ongoing given that the patient also has a known history of diabetic retinopathy. We will continue to closely monitor; however, I do not feel that the patient currently has a urinary tract infection. 8. Anemia with a hemoglobin of 10 and hemodynamic stability. I suspect that this represents anemia of chronic disease as opposed to acute blood loss. We will continue to monitor the patient's CBC and her hemodynamics. 9. Leukocytosis without any other hemodynamic instability. Urine is not suggestive of infection eit her if the patient's chest x-ray. The patient does not have an elevated lactic acid. I suspect that the patient's leukocytosis is currently reactive as opposed to underlying infectious etiology. We will continue to closely monitor for further signs or symptoms of infectious. 10. Diet: Diabetic, renal, special sodium, low cholesterol. 11. Activity: As tolerated. PT as recommended above. 12. Deep venous thrombosis prophylaxis with heparin. 13. Admit the patient to inpatient.
--- NOTE | 2018-04-18 11:33 | PDOC.PN ---
- Subjective Encounter Start Date: 04/18/18 Encounter Start Time: 10:00 Subjective: no sob, feels dizzy to ambulate -: no specific limb weakness -: no fever, cough or chest pain - Objective Resuscitation Status: Resuscitation Status DNR:Do Not Resuscitate MAR Reviewed: Yes Vital Signs & Weight: Vital Signs (12 hours) Temp Pulse Resp BP BP BP BP 04/18/18 11:24 98.2 F 70 18 128/60 04/18/18 07:57 99 F 73 16 139/58 L 109/57 L 152/67 H 04/18/18 04:00 99.3 F 73 13 140/63 Pulse Ox 04/18/18 11:24 93 L 04/18/18 07:57 95 04/18/18 04:00 96 Weight Weight 236 lb 6.4 oz I&O: 04/17/18 04/18/18 04/19/18 06:59 06:59 06:59 Intake Total 2610 Output Total 2850 Balance -240 Result Diagrams: 04/17/18 05:31 04/17/18 19:50 Additional Labs: Accuchecks 04/18/18 04/18/18 04/17/18 10:43 05:47 20:30 POC Glucose 192 H 142 H 266 H 04/17/18 04/17/18 04/17/18 16:29 10:59 00:51 POC Glucose 179 H 178 H 207 H Phys Exam - Physical Examination HEENT: PERRLA, moist MMs Neck: no JVD, supple Respiratory: no wheezing, no rales Cardiovascular: RRR, no significant murmur Gastrointestinal: soft, non-tender, positive bowel sounds Musculoskeletal: no edema, pulses present Neurological: non-focal, moves all 4 limbs Psychiatric: normal affect, A&O x 3 Dx/Plan (1) Hyponatremia Code(s): E87.1 - HYPO-OSMOLALITY AND HYPONATREMIA Status: Acute (2) Metabolic acidosis Code(s): E87.2 - ACIDOSIS Status: Acute (3) Hypokalemia Code(s): E87.6 - HYPOKALEMIA Status: Resolved (4) Hypoalbuminemia Code(s): E88.09 - OTH DISORDERS OF PLASMA-PROTEIN METABOLISM, NEC Status: Chronic (5) Demand ischemia of myocardium Code(s): I24.8 - OTHER FORMS OF ACUTE ISCHEMIC HEART DISEASE Status: Chronic (6) Chronic anemia Code(s): D64.9 - ANEMIA, UNSPECIFIED Status: Chronic (7) ILDEFONSO (acute kidney injury) Code(s): N17.9 - ACUTE KIDNEY FAILURE, UNSPECIFIED Status: Acute (8) Diabetes mellitus type 2 in obese Code(s): E11.9 - TYPE 2 DIABETES MELLITUS WITHOUT COMPLICATIONS; E66.9 - OBESITY , UNSPECIFIED Status: Chronic (9) Chronic kidney disease (CKD) Code(s): N18.9 - CHRONIC KIDNEY DISEASE, UNSPECIFIED Status: Chronic Qualifiers: Chronic kidney disease stage: stage 5, not on chronic dialysis Qualified Code(s): N18.5 - Chronic kidney disease, stage 5 (10) DM type 2 (diabetes mellitus, type 2) Status: Chronic Qualifiers: Diabetes mellitus roasterman insulin use: without roasterman use Diabetes mellitus complication status: with neurologic complications Diabetes mellitus complication detail: with polyneuropathy Qualified Code(s): E11.42 - Type 2 diabetes mellitus with diabetic polyneuropathy (11) Hyperlipidemia Code(s): E78.5 - HYPERLIPIDEMIA, UNSPECIFIED Status: Chronic Qualifiers: Hyperlipidemia type: unspecified (12) Hypertension Code(s): I10 - ESSENTIAL (PRIMARY) HYPERTENSION Status: Chronic Qualifiers: Hypertension type: essential hypertension (13) Obesity Code(s): E66.9 - OBESITY, UNSPECIFIED Status: Chronic Qualifiers: Obesity classification: adult class 2 (BMI 35 - 39.9) - Plan may tx to medical floor -: is comtemplating palliative care/hospice -: counselled reg HD and its benefits -: PT/OT eval, may need swing bed -: renal function is holding up * .blood and urine cs are -ve, cxr is -ve * continue ceftriaxone for now, is afebrile * electrolytes are getting corrected, per neph adv. Review of Systems - Medications/Allergies Allergies/Adverse Reactions: Allergies Allergy/AdvReac Type Severity Reaction Status Date / Time peanut Allergy Intermediate Emesis Verified 04/17/18 01:24 MICA PASTER Medications: Current Medications Acetaminophen (Tylenol) 650 mg PO Q6H PRN PRN Reason: Headache/Fever or Pain Last Admin: 04/18/18 09:40 Dose: 650 mg Amlodipine Besylate (Norvasc) 5 mg PO DAILY KASEY Last Admin: 04/18/18 09:31 Dose: 5 mg Atorvastatin Calcium (Lipitor) 20 mg PO HS [facility] Last Admin: 04/17/18 20:48 Dose: 20 mg Bisacodyl (Dulcolax) 10 mg PO DAILYPRN PRN PRN Reason: Constipation Carvedilol (Coreg) 25 mg PO BID [facility] Last Admin: 04/18/18 09:31 Dose: 25 mg Clopidogrel Bisulfate (Plavix) 75 mg PO DAILY [facility] Last Admin: 04/18/18 09:31 Dose: 75 mg Dextrose/Water (Dextrose 50%) 25 gm SLOW IVP PRN PRN PRN Reason: Hypoglycemia Famotidine (Pepcid) 20 mg SLOW IVP QAM [facility] Last Admin: 04/18/18 09:31 Dose: 20 mg Fluoxetine HCl (Prozac) 20 mg PO DAILY [facility] Last Admin: 04/18/18 09:31 Dose: 20 mg Glucagon (Glucagon) 1 mg IM PRN PRN PRN Reason: Hypoglycemia Heparin Sodium (Porcine) (Heparin) 5,000 units SC TID [facility] Last Admin: 04/18/18 09:32 Dose: 5,000 units Dextrose/Water (D5w) 1,000 mls @ 0 mls/hr IV .Q0M PRN PRN Reason: Hypoglycemia Sodium Chloride (Normal Saline 0.9%) 1,000 mls @ 100 mls/hr IV .Q10H [facility] Last Admin: 04/18/18 09:32 Dose: Not Given Ceftriaxone Sodium 1 gm/ (Sodium Chloride) 100 mls @ 200 mls/hr IVPB 1700 [facility] Last Admin: 04/17/18 17:54 Dose: 100 mls Insulin Human Lispro (Humalog) 0 units SC .MILD SLIDING SCALE PRN PRN Reason: Mild Correctional Scale Levothyroxine Sodium (Synthroid) 175 mcg PO 0600 [facility] Last Admin: 04/18/18 05:12 Dose: 175 mcg Ondansetron HCl (Zofran Odt) 4 mg PO Q6H PRN PRN Reason: Nausea/Vomiting Ondansetron HCl (Zofran) 4 mg IVP Q6H PRN PRN Reason: Nausea/Vomiting Senna/Docusate Sodium (Senokot S) 2 tab PO BID PRN PRN Reason: Constipation Last Admin: 04/17/18 14:14 Dose: 2 tab Sodium Bicarbonate (Bicarbonate, Sodium) 650 mg PO BID [facility]ASEY Last Admin: 04/18/18 09:32 Dose: 650 mg
--- NOTE | 2018-04-18 11:58 | PRG ---
DATE OF SERVICE: 04/18/2018 SUBJECTIVE: This is a 48-year-old female, being seen for stage 5 chronic kidney disease. The patien t denies any nausea, vomiting, or chest pain. OBJECTIVE: See above. GENERAL: Patient is awake and alert. VITAL SIGNS: Afebrile, pulse 70, breathing at 16, blood pressure 128/60. GENERAL APPEARANCE AND MENTAL STATUS: Fair. HEAD/NECK: Normocephalic. Atraumatic. EYES: EOMI. No deformity. EARS: Clear. No ulcers. NOSE: Intact. No lesions. MOUTH: Clear. No discharge. THROAT: Clear. No exudate. LUNGS: Clear. No crackles. CARDIAC: S1, S2. No rub. ABDOMEN: Benign. BS+. GENITALIA/RECTUM: Avendaño absent. BACK/EXTREMITIES: Edema 0+, ulcer. NEUROLOGICAL: Alert and motor intact. SKIN: Rash - bruise. LYMPHATICS: Edema - ulcer. LABORATORY DATA: Labs show hemoglobin 10.3 and creatinine 4.4. ASSESSMENT: 1. Stage 5 chronic kidney disease. The patient refused dialysis. 2. Acidosis, stable. 3. Hypokalemia, stable. No urgent indication for dialysis. Per patient request, we would recommend palliative care consultation.
--- NOTE | 2018-04-18 12:03 | EKG ---
Test Reason : Blood Pressure : / mmHG Vent. Rate : 084 BPM Atrial Rate : 084 BPM P-R Int : 148 ms QRS Dur : 094 ms QT Int : 380 ms P-R-T Axes : 041 -05 047 degrees QTc Int : 449 ms Normal sinus rhythm Normal ECG Confirmed by MT SMITH ([id number]) on 04/18/2018 12:03:07 PM Referred By: DORA Confirmed By:MT SMITH
[2018-04-18 12:44] LABS: Hemoglobin 10.3 g/dL (12.0-16.0)
[2018-04-18 13:07] LABS: Anion Gap 10 mmol/L (10-20); BUN (Urea Nitrogen) 56 mg/dL (7.0-18.7); Calc. Creatinine Clearance 27 mL/min (70-130); Calcium 8.4 mg/dL (7.8-10.44); Carbon Dioxide 23 mmol/L (22-29); Chloride 101 mmol/L (98-107); Estimated GFR-MDRD 11; Glucose 217 mg/dL (70-105); Potassium 3.5 mmol/L (3.5-5.1); Sodium 130 mmol/L (136-145)
[2018-04-18] MEDS: cefTRIAXone\\ROCEPHIN 1 GM in Sodium Chloride 0.9% 100 ML IVPB SCH (18:03)
[2018-04-18] MEDS: Atorvastatin Calcium 20 MG TAB PO SCH (20:37)
[2018-04-19] MEDS: Levothyroxine 175 MCG TAB PO SCH (05:10)
[2018-04-19] MEDS: Acetaminophen 325 MG TAB PO PRN (07:41)
[2018-04-19 08:12] VITALS: BP 167/82
[2018-04-19 09:03] VITALS: TEMP 99.7
[2018-04-19] MEDS: Heparin 5,000 UNITS/ML VIAL SC SCH (10:06)
[2018-04-19] MEDS: FLUoxetine HCl 20 MG CAP PO SCH (10:06)
[2018-04-19] MEDS: Sodium Bicarbonate Tab 325 MG TAB PO SCH (10:06)
[2018-04-19] MEDS: Amlodipine 10 MG TAB PO SCH (10:06)
[2018-04-19] MEDS: Carvedilol 25 MG TAB PO SCH (10:06)
[2018-04-19] MEDS: Clopidogrel Bisulfate 75 MG TAB PO SCH (10:06)
--- NOTE | 2018-04-19 11:45 | PDOC.PN ---
- Subjective Encounter Start Date: 04/19/18 Encounter Start Time: 07:40 Subjective: no sob or abd pain -: no cough or urinary freq/urgency -: no chest pain or calf pain - Objective Resuscitation Status: Resuscitation Status DNR:Do Not Resuscitate MAR Reviewed: Yes Vital Signs & Weight: Vital Signs (12 hours) Temp Pulse Resp BP BP BP Pulse Ox 04/19/18 10:06 83 167/82 H 04/19/18 09:03 99.7 F H 04/19/18 08:00 93 L 04/19/18 07:54 103.1 F H 83 18 167/82 H 93 L 04/19/18 07:23 103.1 F H 83 18 167/82 H 93 L Weight Admit Weight 236 lb 6.4 oz Weight 233 lb 9 oz I&O: 04/18/18 04/19/18 04/20/18 06:59 06:59 06:59 Intake Total 2610 340 Output Total 2850 Balance -240 340 Result Diagrams: 04/18/18 12:33 04/18/18 12:33 Additional Labs: Accuchecks 04/19/18 04/18/18 04/18/18 05:15 20:03 15:58 POC Glucose 235 H 324 H 306 H Phys Exam - Physical Examination HEENT: PERRLA, sclera anicteric Neck: no JVD, supple Respiratory: no wheezing, no rales Cardiovascular: RRR, no significant murmur Gastrointestinal: soft, non-tender, positive bowel sounds Musculoskeletal: no edema, pulses present Neurological: non-focal, moves all 4 limbs Psychiatric: A&O x 3 Dx/Plan (1) Hyponatremia Code(s): E87.1 - HYPO-OSMOLALITY AND HYPONATREMIA Status: Acute (2) Metabolic acidosis Code(s): E87.2 - ACIDOSIS Status: Acute (3) Hypokalemia Code(s): E87.6 - HYPOKALEMIA Status: Resolved (4) Hypoalbuminemia Code(s): E88.09 - OTH DISORDERS OF PLASMA-PROTEIN METABOLISM, NEC Status: Chronic (5) Demand ischemia of myocardium Code(s): I24.8 - OTHER FORMS OF ACUTE ISCHEMIC HEART DISEASE Status: Chronic (6) Chronic anemia Code(s): D64.9 - ANEMIA, UNSPECIFIED Status: Chronic (7) ILDEFONSO (acute kidney injury) Code(s): N17.9 - ACUTE KIDNEY FAILURE, UNSPECIFIED Status: Acute (8) Diabetes mellitus type 2 in obese Code(s): E11.9 - TYPE 2 DIABETES MELLITUS WITHOUT COMPLICATIONS; E66.9 - OBESITY , UNSPECIFIED Status: Chronic (9) Chronic kidney disease (CKD) Code(s): N18.9 - CHRONIC KIDNEY DISEASE, UNSPECIFIED Status: Chronic Qualifiers: Chronic kidney disease stage: stage 5, not on chronic dialysis Qualified Code(s): N18.5 - Chronic kidney disease, stage 5 (10) DM type 2 (diabetes mellitus, type 2) Status: Chronic Qualifiers: Diabetes mellitus termite treater insulin use: without termite treater use Diabetes mellitus complication status: with neurologic complications Diabetes mellitus complication detail: with polyneuropathy Qualified Code(s): E11.42 - Type 2 diabetes mellitus with diabetic polyneuropathy (11) Hyperlipidemia Code(s): E78.5 - HYPERLIPIDEMIA, UNSPECIFIED Status: Chronic Qualifiers: Hyperlipidemia type: unspecified (12) Hypertension Code(s): I10 - ESSENTIAL (PRIMARY) HYPERTENSION Status: Chronic Qualifiers: Hypertension type: essential hypertension (13) Obesity Code(s): E66.9 - OBESITY, UNSPECIFIED Status: Chronic Qualifiers: Obesity classification: adult class 2 (BMI 35 - 39.9) - Plan patient has made up her mind to go into hospice at home -: she has d/w her sister and multiple neices prior to arriving at her [facility] -: counselled that she can always change her decision and get treated actively -: may dc home with hospice per patients wishes * .
--- NOTE | 2018-04-19 13:12 | DIS ---
DATE OF ADMISSION: 04/17/2018 DATE OF DISCHARGE: 04/19/2018 DISCHARGE DISPOSITION: To home with hospice per patient's wishes. PRIMARY DISCHARGE DIAGNOSES: 1. Acute kidney injury with hyponatremia and metabolic acidosis along with hypokalemia, resolved. 2. Chronic kidney disease stage 5. 3. Hypoalbuminemia. 4. Diabetes mellitus type 2 with diabetic nephropathy and diabetic retinopathy with prior history of retinal detachment in the left eye. 5. Chronic anemia. 6. Dyslipidemia. 7. Hypertension. 8. Obesity. PROCEDURES DONE DURING HOSPITALIZATION: Chest x-ray done shows elevation of right hemidiaphragm with mild cardiomegaly. CT brain was unremarkable. Blood cultures x2 no growth. Urine culture no growth. Had a white count of 16 on the day of admission with discharge numbers of 10, H&H 10 and 30, platelet count 139. Discharge BUN and creatinine is 56 and 4.2, serum bicarbonate 23. Admitting BUN and creatinine were 57 and 4.6 with serum bicarbonate of 17 and sodium levels of 120. BNP was 181. INPATIENT CONSULTS: Dr. Montemayor for Nephrology. DISCHARGE MEDICATIONS: Norvasc 5 mg daily, atorvastatin 20 mg p.o. at bedtime, fluoxetine 20 mg daily, glimepiride 1 mg daily, levothyroxine 175 mcg daily, sodium bicarbonate 650 mg twice daily, Coreg 25 mg twice daily, Plavix 75 mg p.o. daily. ALLERGIES: PEANUT. BRIEF COURSE DURING HOSPITALIZATION: The patient initially was brought to emergency room due to generalized weakness and falling at home. On arrival, the patient had severe hyponatremia with acute kidney injury, metabolic acidosis and hypokalemia. She has known history of CKD stage 4-5. The patient has refused hemodialysis if she were to go into end-stage renal disease. She wanted to be a do not resuscitate. The patient's electrolytes were corrected during her stay here. The patient had a fever and almonte cultures were obtained, which were negative. The patient did not want any further workup and has decided to go into hospice at home. She has discussed with her nieces and her sister prior to arriving at this decision. She was counseled to reconsider it, but the patient has made up her mind and she would like to go into hospice at home. In view of this, case management consultation and palliative care consultations were requested. This has been arranged today and she will be shortly discharged home. Please see a [id number] documentation for the day of discharge on [facility]. [facility]
== END 2018-04-19 11:53 | disposition hospice, home (50) | DRG 683 ==
LOC: ERS 20:16 → 2NO 04-17 00:42 → T4-A 04-18 14:22
PROVIDERS: ADMIT Internal Medicine; ATTEND Internal Medicine
DX: N17.9 Acute kidney failure, unspecified (principal); E87.2 Acidosis; I24.8 Other forms of acute ischemic heart disease; E87.1 Hypo-osmolality and hyponatremia; I12.0 Hypertensive chronic kidney disease with stage 5 chronic kidney disease or end stage renal disease; E11.22 Type 2 diabetes mellitus with diabetic chronic kidney disease; N18.5 Chronic kidney disease, stage 5; D64.9 Anemia, unspecified; E87.6 Hypokalemia; E11.319 Type 2 diabetes mellitus with unspecified diabetic retinopathy without macular edema; Z86.73 Personal history of transient ischemic attack (TIA), and cerebral infarction without residual deficits; E03.9 Hypothyroidism, unspecified; E78.5 Hyperlipidemia, unspecified; Z79.899 Other long term (current) drug therapy; Z91.010 Allergy to peanuts; E11.65 Type 2 diabetes mellitus with hyperglycemia; E11.21 Type 2 diabetes mellitus with diabetic nephropathy; D72.829 Elevated white blood cell count, unspecified; E66.9 Obesity, unspecified; F32.9 Major depressive disorder, single episode, unspecified; F41.9 Anxiety disorder, unspecified; Z68.35 Body mass index [BMI] 35.0-35.9, adult
CPT/HCPCS: 36415; 36416; 70450; 71045; 76770; 80048; 80053; 81003; 81015; 82553; 83036; 83605; 83880; 83935; 84300; 84439; 84443; 84484; 85014; 85018; 85025; 87040; 87086; 93005; 93010; 93306; 96361; 96374; G8978-GP-CM; G8979-GP-CK; J0696; J1644; J1815; J7050; Q0162; S0028